=== PATIENT | female | born 1965 | race Caucasian/White ===

== ENCOUNTER 2018-02-06 19:20 | Emergency (ER) | payer SELFPAY ==
--- NOTE | 2018-02-06 19:51 | ER ---
Nurse's Notes [facility] Name: Belem Weldon Age: 52 yrs Sex: Female : 1965 Arrival Date: 02/06/2018 Time: 19:23 Bed 24 Private MD: Diagnosis: Pain in left shoulder Presentation: 02/06 19:25 Presenting complaint: Patient states: Pain R/T left rotator cuff tear 3 months ago. aj Transition of care: patient was not received from another setting of care. Onset of symptoms was October 2017. Risk Assessment: Do you want to hurt yourself or someone else? Patient reports no desire to harm self or others. Initial Sepsis Screen: Does the patient meet any 2 criteria? No. Patient's initial sepsis screen is negative. Does the patient have a suspected source of infection? No. Patient's initial sepsis screen is negative. Care prior to arrival: None. 19:25 Method Of Arrival: Ambulatory aj 19:25 Acuity: NAT 5 aj Triage Assessment: 19:27 General: Appears in no apparent distress. comfortable, Behavior is calm, cooperative, aj appropriate for age. Pain: Complains of pain in anterior aspect of left shoulder. Neuro: Level of Consciousness is awake, alert, obeys commands, Oriented to person, place, time, situation, Appropriate for age. Respiratory: Airway is patent Respiratory effort is even, unlabored, Respiratory pattern is regular, symmetrical. Derm: Skin is intact, is healthy with good turgor, Skin is pink, warm \T\ dry. normal. Musculoskeletal: Reports pain in anterior aspect of left shoulder. 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 - Social history:: Smoking status: Patient uses tobacco products, smokes one-half pack cigarettes per day. - Ebola Screening: : Patient negative for fever greater than or equal to 101.5 degrees Fahrenheit, and additional compatible Ebola Virus Disease symptoms Patient denies exposure to infectious person Patient denies travel to an Ebola-affected area in the 21 days before illness onset No symptoms or risks identified at this time. Screenin:34 Abuse screen: Denies threats or abuse. Denies injuries from another. Nutritional mg2 screening: No deficits noted. Tuberculosis screening: No symptoms or risk factors identified. Fall Risk None identified. Assessment: 19:41 General: Appears in no apparent distress. uncomfortable, Behavior is calm, cooperative. mg2 Pain: Complains of pain in left arm and anterior aspect of left shoulder Pain does not radiate. Pain currently is 6 out of 10 on a pain scale. Quality of pain is described as aching, Pain began gradually, 1 day ago. Is intermittent, Alleviated by rest, Aggravated by increased activity, repositioning, weight bearing. Neuro: Level of Consciousness is awake, alert, obeys commands, Oriented to person, place, time, situation. Cardiovascular: Capillary refill < 3 seconds Patient's skin is warm and dry. Respiratory: Airway is patent Respiratory effort is even, unlabored, Respiratory pattern is regular, symmetrical. GI: No signs and/or symptoms were reported involving the gastrointestinal system. : No signs and/or symptoms were reported regarding the genitourinary system. EENT: No signs and/or symptoms were reported regarding the EENT system. Derm: Skin is intact, Skin is pink, warm \T\ dry. normal. Musculoskeletal: Circulation, motion, and sensation intact. tenderness on the left upper arm. Vital Signs: 19:27 BP 148 / 91; Pulse 81; Resp 18; Temp 97.1; Pulse Ox 97% on R/A; Weight 82.1 kg; Height aj 5 ft. 7 in. (170.18 cm); 19:27 Body Mass Index 28.35 (82.10 kg, 170.18 cm) aj ED Course: 19:23 Patient arrived in ED. al2 19:26 Triage completed. aj 19:27 Arm band placed on left wrist. Patient placed in an exam room. aj 19:42 Pino Junior PA is PHCP. jr8 19:42 Herbert Santamaria MD is Attending Physician. jr8 19:43 Patient has correct armband on for positive identification. Bed in low position. Call mg2 light in reach. Side rails up X 1. Door closed. Warm blanket given. Head of bed. 19:43 No provider procedures requiring assistance completed. mg2 19:59 Patient did not have IV access during this emergency room visit. mg2 Administered Medications: 19:58 Drug: [place] (7.5 mg-325 mg) 1 tabs Route: PO; mg2 19:59 Follow up: Response: No adverse reaction; Medication administered at discharge. mg2 Outcome: 19:51 Discharge ordered by MD. cooper 19:59 Discharged to home ambulatory. mg2 19:59 Condition: good 19:59 Discharge instructions given to patient, Instructed on discharge instructions, follow up and referral plans. Demonstrated understanding of instructions, follow-up care, Prescriptions given X 1. 20:01 Patient left the ED. mg2 Signatures: Emeli Frazier, RN RN Pino Butt PA PA jr8 Love, Angelica al2 Gardose, Michele, RN RN mg2
--- NOTE | 2018-02-06 19:51 | EDPHYS ---
Physician Documentation [facility] Name: Belem Weldon Age: 52 yrs Sex: Female : 1965 Arrival Date: 02/06/2018 Time: 19:23 Bed 24 Private MD: ED Physician Herbert Santamaria HPI: 02/06 19:48 This 52 yrs old Female presents to ER via Ambulatory with complaints of jr8 Shoulder Pain. 19:48 left shoulder. Onset: The symptoms/episode began/occurred 3 month(s) ago. Modifying jr8 factors: the symptoms are alleviated by nothing. The symptoms are aggravated by lifting weight, movement, rotation of arm. Severity of symptoms: At their worst the symptoms were moderate, in the emergency department the symptoms are unchanged. The patient has experienced similar episodes in the past, a few times. The patient has not recently seen a physician. Chronic left shoulder pain. Stated that she aggravated it the other day and now cannot stand the pain . 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 - Social history:: Smoking status: Patient uses tobacco products, smokes one-half pack cigarettes per day. - Ebola Screening: : Patient negative for fever greater than or equal to 101.5 degrees Fahrenheit, and additional compatible Ebola Virus Disease symptoms Patient denies exposure to infectious person Patient denies travel to an Ebola-affected area in the 21 days before illness onset No symptoms or risks identified at this time. ROS: 19:48 Eyes: Negative for injury, pain, redness, and discharge, ENT: Negative for injury, jr8 pain, and discharge, Neck: Negative for injury, pain, and swelling, Cardiovascular: Negative for chest pain, palpitations, and edema, Respiratory: Negative for shortness of breath, cough, wheezing, and pleuritic chest pain, Abdomen/GI: Negative for abdominal pain, nausea, vomiting, diarrhea, and constipation, Back: Negative for injury and pain, Skin: Negative for injury, rash, and discoloration, Neuro: Negative for headache, weakness, numbness, tingling, and seizure. 19:48 MS/extremity: Positive for decreased range of motion, pain, tenderness, of the left shoulder. Exam: 19:48 Eyes: Pupils equal round and reactive to light, extra-ocular motions intact. Lids and jr8 lashes normal. Conjunctiva and sclera are non-icteric and not injected. Cornea within normal limits. Periorbital areas with no swelling, redness, or edema. ENT: Nares patent. No nasal discharge, no septal abnormalities noted. Tympanic membranes are normal and external auditory canals are clear. Oropharynx with no redness, swelling, or masses, exudates, or evidence of obstruction, uvula midline. Mucous membranes moist. Neck: Trachea midline, no thyromegaly or masses palpated, and no cervical lymphadenopathy. Supple, full range of motion without nuchal rigidity, or vertebral point tenderness. No Meningismus. Cardiovascular: Regular rate and rhythm with a normal S1 and S2. No gallops, murmurs, or rubs. Normal PMI, no JVD. No pulse deficits. Respiratory: Lungs have equal breath sounds bilaterally, clear to auscultation and percussion. No rales, rhonchi or wheezes noted. No increased work of breathing, no retractions or nasal flaring. Abdomen/GI: Soft, non-tender, with normal bowel sounds. No distension or tympany. No guarding or rebound. No evidence of tenderness throughout. Back: No spinal tenderness. No costovertebral tenderness. Full range of motion. Skin: Warm, dry with normal turgor. Normal color with no rashes, no lesions, and no evidence of cellulitis. Neuro: Awake and alert, GCS 15, oriented to person, place, time, and situation. Cranial nerves II-XII grossly intact. Motor strength 5/5 in all extremities. Sensory grossly intact. Cerebellar exam normal. Normal gait. 19:48 Musculoskeletal/extremity: Extremities: grossly normal except: noted in the left shoulder: decreased ROM, pain, tenderness, Circulation is intact in all extremities. Sensation intact. decreased ROM with abduction and flexion of shoulder . Vital Signs: 19:27 BP 148 / 91; Pulse 81; Resp 18; Temp 97.1; Pulse Ox 97% on R/A; Weight 82.1 kg; Height aj 5 ft. 7 in. (170.18 cm); 19:27 Body Mass Index 28.35 (82.10 kg, 170.18 cm) MDM: 19:42 Patient medically screened. jr8 19:48 Data reviewed: vital signs, nurses notes, and as a result, I will discharge patient. jr8 Data interpreted: Pulse oximetry: on room air is 97 %. Interpretation: normal. Counseling: I had a detailed discussion with the patient and/or guardian regarding: the historical points, exam findings, and any diagnostic results supporting the discharge/admit diagnosis, the need for outpatient follow up, a orthopedic surgeon, to return to the emergency department if symptoms worsen or persist or if there are any questions or concerns that arise at home. Administered Medications: 19:58 Drug: [place] (7.5 mg-325 mg) 1 tabs Route: PO; mg2 19:59 Follow up: Response: No adverse reaction; Medication administered at discharge. mg2 Disposition: 21:36 Co-signature as Attending Physician, Herbert Santamaria MD. pkrome Disposition: 02/06/18 19:51 Discharged to Home. Impression: Pain in left shoulder. - Condition is Stable. - Discharge Instructions: Shoulder Pain. - Prescriptions for Tylenol- Codeine #3 300-30 mg Oral Tablet - take 2 tablets by ORAL route every 6 hours As needed; 12 tablet. - Medication Reconciliation Form, Thank You Letter, Antibiotic Education, Prescription Opioid Use form. - Follow up: Private Physician; When: 2 - 3 days; Reason: Recheck today's complaints, Continuance of care, Re-evaluation by your physician. - Problem is new. - Symptoms have improved. Signatures: Emeli Frazier RN Herbert Bell MD MD pkl Pino Junior PA PA jr8 Rob Tobar RN RN mg2 Corrections: (The following items were deleted from the chart) 20:01 19:51 02/06/2018 19:51 Discharged to Home. Impression: Pain in left shoulder. Condition mg2 is Stable. Forms are Medication Reconciliation Form, Thank You Letter, Antibiotic Education, Prescription Opioid Use. Follow up: Private Physician; When: 2 - 3 days; Reason: Recheck today's complaints, Continuance of care, Re-evaluation by your physician. Problem is new. Symptoms have improved. jr8
[2018-02-06] MEDS ORDERED: HYDROCODONE/APAP 7.5/325 MG TAB ONE (19:56)
== END 2018-02-06 20:01 | disposition home or self-care (01) ==
LOC: ER 19:20
DX: M25.512 Pain in left shoulder (principal); Z88.5 Allergy status to narcotic agent; Z88.8 Allergy status to other drugs, medicaments and biological substances; F17.210 Nicotine dependence, cigarettes, uncomplicated
CPT/HCPCS: 99283

== ENCOUNTER 2018-03-23 21:25 | Emergency (ER) | payer SELFPAY ==
[2018-03-23] MEDS ORDERED: MORPHINE 4 MG/ML SYR ONE (22:50)
[2018-03-23] MEDS ORDERED: NA CHLORIDE 0.9% 500 ML ONE (22:50)
[2018-03-23] MEDS ORDERED: ONDANSETRON 4 MG/2 ML VIAL ONE (22:50)
[2018-03-23 22:54] LABS: Absolute Lymphocytes (CBC) 2.8 K/uL (0.7-4.9); Absolute Monocytes 0.8 K/uL (0.1-1.3); Absolute Neutrophil 5.2 K/uL (1.8-8.0); Eosinophils % 7.8 % (0-4.4); Hematocrit 36.6 % (36.0-45.0); Lymphocytes % 29.3 % (15.3-44.8); MCH 32.2 pg (27.0-35.0); MCV 93.4 fL (80-100); MPV 9.8 fL (7.6-11.3); Monocytes % 8.1 % (3.3-12.3); RBC Red Blood Cell Count 3.92 M/uL (3.86-4.86)
[2018-03-23 23:07] LABS: ALT/SGPT 14 U/L (12-78); AST/SGOT 14 U/L (15-37); Albumin 3.4 g/dL (3.4-5.0); Alkaline Phosphatase 75 U/L (45-117); BUN Blood Urea Nitrogen 11 mg/dL (7-18); Bicarbonate 28 mmol/L (21-32); Bilirubin Direct < 0.1 mg/dL (0-0.2); Bilirubin Total 0.1 mg/dL (0.2-1.0); Glucose Level 99 mg/dL (74-106); Lipase 101 U/L (73-393); Potassium 3.7 mmol/L (3.5-5.1); Protein, Total 6.7 g/dL (6.4-8.2); Sodium Level 145 mmol/L (136-145)
[2018-03-24] MEDS ORDERED: FENTANYL CITR 100 MCG/2 ML ONE (00:48)
--- NOTE | 2018-03-24 01:00 | ER ---
Nurse's Notes [facility] Name: Belem Weldon Age: 53 yrs Sex: Female : 1965 Arrival Date: 03/23/2018 Time: 21:25 Bed 8 Private MD: Diagnosis: Acute abdominal pain s/p appendectomy Presentation: 03/23 21:33 Presenting complaint: Patient states: She had a appendectomy 3 days ago in [place]. aj1 Patient states that her pain hasn't gotten any better since she had surgery so she came to the ER. Reports RLQ abdominal pain. Reports nausea. Denies V/D. Denies fever. Transition of care: patient was not received from another setting of care. Onset of symptoms was March 21, 2018. Risk Assessment: Do you want to hurt yourself or someone else? Patient reports no desire to harm self or others. Initial Sepsis Screen: Does the patient meet any 2 criteria? No. Patient's initial sepsis screen is negative. Does the patient have a suspected source of infection? Yes: Acute abdominal pain. Care prior to arrival: None. 21:33 Method Of Arrival: Ambulatory aj 21:33 Acuity: NAT 3 aj1 Triage Assessment: 21:35 General: Appears in no apparent distress. uncomfortable, Behavior is calm, cooperative, aj1 appropriate for age. Pain: Complains of pain in right lower quadrant Pain currently is 9 out of 10 on a pain scale. Neuro: Level of Consciousness is awake, alert, obeys commands. Cardiovascular: Patient's skin is warm and dry. Respiratory: Airway is patent Respiratory effort is even, unlabored, Respiratory pattern is regular, symmetrical. GI: Reports lower abdominal pain, nausea, Patient currently denies diarrhea, vomiting. 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 - Social history:: Smoking status: Patient uses tobacco products, smokes one-half pack cigarettes per day. - Ebola Screening: : Patient denies travel to an Ebola-affected area in the 21 days before illness onset. - Family history:: not pertinent. - Hospitalizations: : s/p appendectomy in a hospital in [place]. Screenin:39 Abuse screen: Denies threats or abuse. Denies injuries from another. Nutritional lp1 screening: No deficits noted. Tuberculosis screening: No symptoms or risk factors identified. Fall Risk None identified. Assessment: 22:36 General: Appears uncomfortable, Behavior is appropriate for age. Pain: Complains of lp1 pain in umbilical area Pain currently is 8 out of 10 on a pain scale. Quality of pain is described as sharp, Pain began gradually. Neuro: Level of Consciousness is awake, alert, obeys commands, Oriented to person, place, time, situation. Cardiovascular: Patient's skin is warm and dry. Respiratory: Respiratory effort is even, unlabored, Breath sounds are clear bilaterally. GI: Abdomen is non-distended, Abdomen is tender to palpation in umbilical area. : No signs and/or symptoms were reported regarding the genitourinary system. Derm: Post surgical sites x3 to abdomen post appendectomy; sites clean and dry; hot, tender to touch to right of umbilicus. Musculoskeletal: Circulation, motion, and sensation intact. 22:48 Reassessment: Ultrasound at bedside. lp1 03/24 00:00 Reassessment: Patient appears in no apparent distress at this time. Patient and/or lp1 family updated on plan of care and expected duration. Pain level reassessed. Patient is alert, oriented x 3, equal unlabored respirations, skin warm/dry/pink. Patient states no pain relief from medication. 01:14 Reassessment: Patient appears in no apparent distress at this time. Patient and/or lp1 family updated on plan of care and expected duration. Pain level reassessed. Patient states feeling better. Vital Signs: 03/23 21:35 BP 139 / 69; Pulse 88; Resp 18; Temp 99.5(O); Pulse Ox 97% on R/A; Weight 87.09 kg (R); aj1 Height 5 ft. 7 in. (170.18 cm) (R); Pain 9/10; 22:45 BP 124 / 72; Pulse 83; Resp 16; Pulse Ox 98% on R/A; lp1 03/24 00:14 BP 133 / 68; Pulse 76; Resp 16; Pulse Ox 98% on R/A; lp1 03/23 21:35 Body Mass Index 30.07 (87.09 kg, 170.18 cm) aj1 ED Course: 03/23 21:25 Patient arrived in ED. ds1 21:35 Triage completed. aj1 21:35 Arm band placed on Patient placed in waiting room, Patient notified of wait time. aj1 22:08 Regis Larry MD is Attending Physician. wa 22:17 Hiral Shrestha RN is Primary Nurse. lp1 22:35 Inserted saline lock: 20 gauge in left antecubital area, using aseptic technique. Blood lp1 collected. 22:40 Patient has correct armband on for positive identification. Bed in low position. Call lp1 light in reach. Pulse ox on. NIBP on. 23:00 Extrem Venous W Compression Deepak US In Process Unspecified. EDMS 23:00 Radiology exam delayed due to lab results not completed at this time. (BUN/Creatinine). nj 23:30 CT Abd/Pelvis - W/Contrast In Process Unspecified. EDMS 10 00:59 Sonido Henderson MD is Referral Physician. wa 01:13 No provider procedures requiring assistance completed. IV discontinued, No lp1 redness/swelling at site. Pressure dressing applied. Administered Medications: 03/23 23:08 Drug: NS 0.9% 500 ml Route: IV; Rate: bolus; Site: left antecubital; lp1 03/24 00:52 Follow up: IV Status: Completed infusion; IV Intake: 500ml lp1 03/23 23:08 Drug: Zofran 2 mg Route: IVP; Site: left antecubital; lp1 03/24 00:00 Follow up: Response: No adverse reaction lp1 03/23 23:09 Drug: morphine 5 mg Route: IVP; Site: left antecubital; lp1 03/24 00:00 Follow up: Response: Pain is unchanged, physician notified lp1 00:45 Drug: fentaNYL (PF) 75 mcg Route: IVP; Site: left antecubital; lp1 01:14 Follow up: Response: Pain is decreased lp1 Intake: 00:52 IV: 500ml; Total: 500ml. lp1 Outcome: 00:59 Discharge ordered by . wa 01:13 Discharged to home ambulatory, with significant other. lp1 01:13 Condition: good 01:13 Discharge instructions given to patient, Instructed on discharge instructions, follow up and referral plans. medication usage, Demonstrated understanding of instructions, follow-up care, medications, Prescriptions given X 2. 01:14 Patient left the ED. lp1 Signatures: Dispatcher [employer] EDAlisa Farrell RN RN aj1 Amy Junior Laura, RN RN lp1 Ian Gates William, MD MD wa
--- NOTE | 2018-03-24 01:00 | EDPHYS ---
Physician Documentation [facility] Name: Belem Weldon Age: 53 yrs Sex: Female : 1965 Arrival Date: 03/23/2018 Time: 21:25 Bed 8 Private MD: ED Physician Regis Larry HPI: 03/24 00:49 This 53 yrs old Female presents to ER via Ambulatory with complaints of Post wa Surgical Pain. 00:49 The patient presents with abdominal pain. 00:50 Onset: The symptoms/episode began/occurred 5 day(s) ago, states s/p appendectomy 5 days wa ago. released 3 days ago. c/o RLQ abd pain. worsening. The symptoms do not radiate. Associated signs and symptoms: none. The symptoms are described as achy. Modifying factors: The symptoms are alleviated by nothing, the symptoms are aggravated by nothing. Severity of pain: At its worst the pain was moderate in the emergency department the pain is unchanged. The patient has not experienced similar symptoms in the past. The patient has been recently seen by a physician: as noted above. 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 - Social history:: Smoking status: Patient uses tobacco products, smokes one-half pack cigarettes per day. - Ebola Screening: : Patient denies travel to an Ebola-affected area in the 21 days before illness onset. - Family history:: not pertinent. - Hospitalizations: : s/p appendectomy in a hospital in [place]. ROS: 03/24 00:52 Constitutional: Negative for fever, chills, and weight loss, Eyes: Negative for injury, wa pain, redness, and discharge, ENT: Negative for injury, pain, and discharge, Neck: Negative for injury, pain, and swelling, Cardiovascular: Negative for chest pain, palpitations, and edema, Respiratory: Negative for shortness of breath, cough, wheezing, and pleuritic chest pain, Back: Negative for injury and pain, : Negative for injury, bleeding, discharge, and swelling, MS/Extremity: Negative for injury and deformity, Skin: Negative for injury, rash, and discoloration, Neuro: Negative for headache, weakness, numbness, tingling, and seizure, Psych: Negative for depression, anxiety, suicide ideation, homicidal ideation, and hallucinations. Abdomen/GI: Positive for abdominal pain, Negative for nausea and vomiting, diarrhea. All other systems are negative. Exam: 00:53 Constitutional: This is a well developed, well nourished patient who is awake, alert, wa and in no acute distress. Head/Face: Normocephalic, atraumatic. Eyes: Pupils equal round and reactive to light, extra-ocular motions intact. Lids and lashes normal. Conjunctiva and sclera are non-icteric and not injected. Cornea within normal limits. Periorbital areas with no swelling, redness, or edema. ENT: Nares patent. No nasal discharge, no septal abnormalities noted. Tympanic membranes are normal and external auditory canals are clear. Oropharynx with no redness, swelling, or masses, exudates, or evidence of obstruction, uvula midline. Mucous membranes moist. Neck: Trachea midline, no thyromegaly or masses palpated, and no cervical lymphadenopathy. Supple, full range of motion without nuchal rigidity, or vertebral point tenderness. No Meningismus. Chest/axilla: Normal chest wall appearance and motion. Nontender with no deformity. No lesions are appreciated. Cardiovascular: Regular rate and rhythm with a normal S1 and S2. No gallops, murmurs, or rubs. Normal PMI, no JVD. No pulse deficits. Respiratory: Lungs have equal breath sounds bilaterally, clear to auscultation and percussion. No rales, rhonchi or wheezes noted. No increased work of breathing, no retractions or nasal flaring. Back: No spinal tenderness. No costovertebral tenderness. Full range of motion. Skin: Warm, dry with normal turgor. Normal color with no rashes, no lesions, and no evidence of cellulitis. MS/ Extremity: Pulses equal, no cyanosis. Neurovascular intact. Full, normal range of motion. Neuro: Awake and alert, GCS 15, oriented to person, place, time, and situation. Cranial nerves II-XII grossly intact. Motor strength 5/5 in all extremities. Sensory grossly intact. Cerebellar exam normal. Normal gait. Psych: Awake, alert, with orientation to person, place and time. Behavior, mood, and affect are within normal limits. Vital Signs: 03/23 21:35 BP 139 / 69; Pulse 88; Resp 18; Temp 99.5(O); Pulse Ox 97% on R/A; Weight 87.09 kg (R); aj1 Height 5 ft. 7 in. (170.18 cm) (R); Pain 9/10; 22:45 BP 124 / 72; Pulse 83; Resp 16; Pulse Ox 98% on R/A; lp1 03/24 00:14 BP 133 / 68; Pulse 76; Resp 16; Pulse Ox 98% on R/A; lp1 03/23 21:35 Body Mass Index 30.07 (87.09 kg, 170.18 cm) aj1 MDM: 03/23 22:08 Patient medically screened. mo 03/24 00:53 Differential diagnosis: abd pain. s/p appendectomy. r/o abscess. Data reviewed: vital mo signs, nurses notes, lab test result(s). Test interpretation: by ED physician or midlevel provider: labs noted wnl. CT abd/pelvis: post-op changes. no acute process. 00:57 ED course: improved. no intra- abd abscess. pain control. gen surg f/u as pt is not mo going back to [place]. 03/23 22:30 Order name: Basic Metabolic Panel; Complete Time: 00:49 mo 03/23 22:30 Order name: CBC with Diff; Complete Time: 00:50 mo 03/23 22:30 Order name: Hepatic Function; Complete Time: 00:50 mo 03/23 22:30 Order name: Lipase; Complete Time: 00:50 mo 03/23 22:30 Order name: Urine Microscopic Only mo 03/24 00:55 Order name: Urine Dipstick--Ancillary (enter results) [facility] 03/23 22:28 Order name: Extrem Venous W Compression Deepak US mo 03/23 22:30 Order name: IV Saline Lock; Complete Time: 22:41 mo 03/23 22:30 Order name: CT Abd/Pelvis - W/Contrast mo 03/24 01:03 Order name: Urine Culture EDUT 03/23 22:30 Order name: Labs collected and sent; Complete Time: 22:41 mo 03/23 22:30 Order name: Urine Dipstick-Ancillary (obtain specimen); Complete Time: 00:54 mo Administered Medications: 03/23 23:08 Drug: NS 0.9% 500 ml Route: IV; Rate: bolus; Site: left antecubital; lp1 03/24 00:52 Follow up: IV Status: Completed infusion; IV Intake: 500ml lp1 03/23 23:08 Drug: Zofran 2 mg Route: IVP; Site: left antecubital; lp1 03/24 00:00 Follow up: Response: No adverse reaction lp1 03/23 23:09 Drug: morphine 5 mg Route: IVP; Site: left antecubital; 1 03/24 00:00 Follow up: Response: Pain is unchanged, physician notified lp1 00:45 Drug: fentaNYL (PF) 75 mcg Route: IVP; Site: left antecubital; 1 01:14 Follow up: Response: Pain is decreased [facility] Disposition: 03/24/18 00:59 Discharged to Home. Impression: Acute abdominal pain s/p appendectomy. - Condition is Stable. - Discharge Instructions: Abdominal Pain, Adult, [id number]. - Prescriptions for Zofran 4 mg Oral Tablet - take 1 tablet by ORAL route every 12 hours As needed; 20 tablet. - Medication Reconciliation Form, Thank You Letter, Antibiotic Education, Prescription Opioid Use form. - Follow up: Sonido Henderson MD; When: 1 - 2 days; Reason: Recheck today's complaints. - Problem is new. - Symptoms have improved. Signatures: Dispatcher [employer] EDMS Alisa Rodriguez RN RN aj1 Hiral Shrestha RN RN lp1 Regis Larry MD MD wa Corrections: (The following items were deleted from the chart) 01:14 00:59 03/24/2018 00:59 Discharged to Home. Impression: Acute abdominal pain s/p lp1 appendectomy. Condition is Stable. Forms are Medication Reconciliation Form, Thank You Letter, Antibiotic Education, Prescription Opioid Use. Follow up: Sonido Henderson; When: 1 - 2 days; Reason: Recheck today's complaints. Problem is new. Symptoms have improved. wa
[2018-03-24 01:02] LABS: Urine Amorphous Sediment TRACE /HPF (NONE SEEN); Urine Bacteria 20-50 /HPF (<20); Urine Culture Reflex Order REFLEXED; Urine RBC NONE SEEN /HPF (NONE SEEN)
[2018-03-24 01:26] LABS: Urine Blood NEGATIVE (NEG); Urine Glucose NEGATIVE (NEG); Urine Protein NEGATIVE (NEG); Urine Specific Gravity 1.015 (1.005-1.030); Urine pH 6.5 (5.0-7.0)
--- NOTE | 2018-03-24 08:23 | RAD REPORT ---
EXAM DESCRIPTION: US - Extrem Venous W Compress Deepak - 03/24/2018 7:58 am CLINICAL HISTORY: Bilateral leg pain and swelling COMPARISON: None. TECHNIQUE: Real-time sonographic evaluation of the bilateral lower extremity common femoral, superfi cial femoral, popliteal and posterior tibial veins was performed. FINDINGS: Normal compressibility, flow augmentation, phasic flow and spontaneous flow are identified in the left and right lower extremity common femoral, superficial femoral, popliteal and posterior t ibial veins. No intraluminal filling defects seen. A 3.8 x 2.3 x 0.8 right popliteal fossa cyst is present. No rupture or hemorrhage findings. IMPRESSION: No DVT in either lower extremity. Moderate-size popliteal fossa cyst on the right. No cyst rupture or hemorrhage seen.
--- NOTE | 2018-03-24 08:35 | RAD REPORT ---
EXAM DESCRIPTION: CT - Abdomen Pelvis W Contrast - 03/24/2018 4:22 am CLINICAL HISTORY: Abdominal pain progressive since appendectomy 3 days earlier A preliminary report was provided at the time of the study and reviewed prior to final report. COMPARISON: None. TECHNIQUE: Biphasic, helical CT imaging of the abdomen and pelvis was performed following 100 ml non -ionic IV contrast. No oral contrast was given. All CT scans are performed using dose optimization technique as appropriate and may include automated exposure control or mA/KV adjustment according to patient size. FINDINGS: No suspicious findings in the lung bases. The liver, spleen, and pancreas show no suspicious findings. Gallbladder and biliary tree are also wi thout suspicious finding. Symmetric renal function is seen with no hydronephrosis or suspicious renal mass. No pyelonephritis o r acute renal parenchymal process. No adrenal abnormality. Partially filled urinary bladder shows no suspicious findings. No gastric dilatation or wall thickening. No dilated small bowel loops. Appendectomy clips are presen t. Little if any identifiable postoperative stranding seen. There is no abscess or extravasation. No right lower quadrant abnormality to explain patient's symptoms. There is moderate stool volume in the nondilated colon. Nonspecific enteritis or small bowel ileus would be possible. No free air, free fl uid or inflammatory stranding. No hernia, mass or bulky lymphadenopathy. No acute bone findings seen. Approximately 40% wedge compression of T11 is present presumed to be old given the absence of any acute symptoms. Hemangioma changes are present in the L1 body. Patient has advanced disc and bony degenerative change at L5-S1. IMPRESSION: No abnormality or complications related to the appendectomy. Moderate stool volume is pr esent in the colon. Small bowel enteritis or mild ileus could still be present. No pyelonephritis or acute finding.
== END 2018-03-24 01:14 | disposition home or self-care (01) ==
LOC: ER 21:25
DX: R10.31 Right lower quadrant pain (principal); E03.9 Hypothyroidism, unspecified; F17.210 Nicotine dependence, cigarettes, uncomplicated; Z88.5 Allergy status to narcotic agent; Z88.6 Allergy status to analgesic agent; Z88.8 Allergy status to other drugs, medicaments and biological substances; Z98.890 Other specified postprocedural states
CPT/HCPCS: 36415; 74177; 80048; 80076; 81003; 81015; 83690; 85025; 87086; 87088; 93970; 96361; 96374; 96375; 99284; J2405; J3010; Q9967

== ENCOUNTER 2018-04-01 11:58 | Emergency (ER) | payer SELFPAY ==
[2018-04-01] MEDS ORDERED: ACETAMINOPHEN 500 MG TAB ONE ×2 (12:20→16:00)
[2018-04-01] MEDS ORDERED: NA CHLORIDE 0.9% 1,000 ML ONE ×2 (12:20→16:01)
[2018-04-01] MEDS ORDERED: ONDANSETRON 4 MG/2 ML VIAL ONE (12:20)
[2018-04-01] MEDS ORDERED: MORPHINE 4 MG/ML SYR ONE (12:32)
[2018-04-01 12:40] LABS: Absolute Monocytes 0.7 K/uL (0.1-1.3); Absolute Neutrophil 22.9 K/uL (1.8-8.0); Basophils % 0.1 % (0-1.3); Eosinophils % 1.5 % (0-4.4); Hematocrit 39.7 % (36.0-45.0); Lymphocytes % 3.9 % (15.3-44.8); MCH 31.5 pg (27.0-35.0); MCV 92.4 fL (80-100); MPV 9.3 fL (7.6-11.3); Monocytes % 2.9 % (3.3-12.3)
[2018-04-01 13:23] LABS: ALT/SGPT 20 U/L (12-78); AST/SGOT 17 U/L (15-37); Albumin 3.9 g/dL (3.4-5.0); Alkaline Phosphatase 93 U/L (45-117); BUN Blood Urea Nitrogen 16 mg/dL (7-18); Bicarbonate 26 mmol/L (21-32); Bilirubin Direct < 0.1 mg/dL (0-0.2); Bilirubin Total 0.3 mg/dL (0.2-1.0); Glucose Level 119 mg/dL (74-106); Lipase 113 U/L (73-393); Potassium 4.1 mmol/L (3.5-5.1); Protein, Total 7.6 g/dL (6.4-8.2); Sodium Level 139 mmol/L (136-145)
[2018-04-01] MEDS ORDERED: ALBUTEROL 2.5 MG/3 ML NEB SOL ONE (13:24)
[2018-04-01] MEDS ORDERED: IPRATROPIUM BROM 0.5MG/2.5ML ONE (13:24)
[2018-04-01] MEDS ORDERED: CEFTRIAXONE/SWI 1gm 1 GM/10 ML SYR ONE (13:24)
[2018-04-01 13:29] LABS: Blood Morphology Comment NOTED (NOT SEEN); Platelet Estimate ADEQ; Stomatocytes 1+
--- NOTE | 2018-04-01 13:31 | RAD REPORT ---
EXAM DESCRIPTION: Samuel Single View04/01/2018 1:14 pm CLINICAL HISTORY: cough COMPARISON: none FINDINGS: The lungs appear clear of acute infiltrate. The heart is normal size IMPRESSION: No acute abnormalities displayed
[2018-04-01 14:45] LABS: Urine Bacteria 20-50 /HPF (<20); Urine Culture Reflex Order NOT NEEDED; Urine RBC <5 /HPF (NONE SEEN)
--- NOTE | 2018-04-01 15:57 | RAD REPORT ---
EXAM DESCRIPTION: CT - Abdomen Pelvis W Contrast - 04/01/2018 3:40 pm CLINICAL HISTORY: Fever, abdominal pain, body aches, appendectomy 2 weeks earlier COMPARISON: CT study of March 23 TECHNIQUE: Biphasic, helical CT imaging of the abdomen and pelvis was performed following 100 ml non -ionic IV contrast. Oral contrast was given. All CT scans are performed using dose optimization technique as appropriate and may include automated exposure control or mA/KV adjustment according to patient size. FINDINGS: Scarring changes are present in both lung bases. No pericardial thickening or effusion. The liver, spleen, and pancreas show no suspicious findings. Liver is borderline fatty infiltrated. N o gallbladder or biliary tree acute finding. Gallstones can be occult. Symmetric renal function is seen with no hydronephrosis or suspicious renal mass. No pyelonephritis o r acute renal parenchymal process. Urinary bladder shows no suspicious finding. Uterus is absent. Ova vernon are absent or atrophic. No suspicious adnexal mass. No gastric dilatation gastric wall thickening. A minimal hiatal hernia is present. No dilated small b owel loops. There is moderate stool volume throughout the colon. Appendectomy clips are present. No w all thickening at the appendectomy site. No abscess, inflammatory stranding or acute finding at this site. Trace amount of free fluid in the cul-de-sac is within physiologic limits the not regarded as s uspicious. No free air or pneumatosis. No mass or bulky lymphadenopathy. Postsurgical changes are present at th e umbilicus. No adrenal abnormality. No suspicious bony findings. IMPRESSION: Appendectomy changes are present but there is no abscess, free air, inflammatory strandi ng or other suspicious finding. The trace free fluid in the cul-de-sac is within physiologic limits and not regarded as significant. No acute finding is identifiable. No suspicious change from comparison imaging.
--- NOTE | 2018-04-01 16:05 | ER ---
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 Transition of care: patient was not received from another setting of care. Onset of symptoms was April 01, 2018. Risk Assessment: Do you want to hurt yourself or someone else? Patient reports no desire to harm self or others. Initial Sepsis Screen: Does the patient meet any 2 criteria? No. Patient's initial sepsis screen is negative. Does the patient have a suspected source of infection? No. Patient's initial sepsis screen is negative. Care prior to arrival: Medication(s) given: zofran 4 mg, IV initiated. 20 GA, in the left antecubital area, Glucose check: 113. 12:00 Method Of Arrival: EMS: [email or web address] 12:00 Acuity: NAT 3 hj Triage Assessment: 12:04 General: Appears in no apparent distress. uncomfortable, Behavior is cooperative, hj appropriate for age, crying. Pain: Complains of pain in body. EENT: No signs and/or symptoms were reported regarding the EENT system. Neuro: Level of Consciousness is awake, alert, obeys commands, Oriented to person, place, time, situation, Appropriate for age. Cardiovascular: Capillary refill < 3 seconds Patient's skin is warm and dry. Respiratory: Airway is patent Respiratory effort is even, unlabored, Respiratory pattern is regular, symmetrical. GI: Reports nausea, vomiting. : No signs and/or symptoms were reported regarding the genitourinary system. Derm: Musculoskeletal: No signs and/or symptoms reported regarding the musculoskeletal system. 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 - Social history:: Smoking status: Patient uses tobacco products, Patient/guardian denies using alcohol. - Ebola Screening: : Patient negative for fever greater than or equal to 101.5 degrees Fahrenheit, and additional compatible Ebola Virus Disease symptoms Patient denies exposure to infectious person Patient denies travel to an Ebola-affected area in the 21 days before illness onset. Screenin:05 Abuse screen: Denies threats or abuse. Denies injuries from another. Nutritional hj screening: No deficits noted. Tuberculosis screening: No symptoms or risk factors identified. Fall Risk None identified. Assessment: 12:07 Reassessment: see triage for assessment;. hj 13:00 Reassessment: Patient and/or family updated on plan of care and expected duration. Pain hj level reassessed. Patient is alert, oriented x 3, equal unlabored respirations, skin warm/dry/pink. Patient states feeling better. 13:56 Reassessment: complaints of headache; provider aware;. hj 14:42 Reassessment: Patient and/or family updated on plan of care and expected duration. Pain hj level reassessed. Patient is alert, oriented x 3, equal unlabored respirations, skin warm/dry/pink. awaiting urine taqueria results; called lab; states; it wont be that long to be resulted;. 15:04 Reassessment: Patient and/or family updated on plan of care and expected duration. Pain hj level reassessed. Patient is alert, oriented x 3, equal unlabored respirations, skin warm/dry/pink. provider in room for POC;. 15:18 Reassessment: provider ordered straight cath; pt refused; states "i can pee', i dont hj want that"; explained to pt, we want a sterile catch; pt still resufed;. 15:38 Reassessment: still complaining of pain; wheeled to CT:. hj 15:51 Reassessment: wheeled back from CT;. hj Vital Signs: 12:05 BP 131 / 62; Pulse 104; Resp 18; Temp 102.2(O); Pulse Ox 99% on R/A; Weight 88.45 kg; hj Height 5 ft. 7 in. (170.18 cm); 13:13 BP 132 / 58; Pulse 95; Resp 18; Temp 101.8(O); Pulse Ox 100% on R/A; hj 13:55 BP 121 / 44; Pulse 80; Resp 18; Pulse Ox 98% on R/A; hj 14:43 BP 110 / 41; Pulse 78; Resp 18; Pulse Ox 98% on R/A; hj 15:04 BP 114 / 57; Pulse 75; Resp 18; Pulse Ox 99% on R/A; hj 15:52 BP 153 / 82; Pulse 76; Resp 18; Pulse Ox 100% on R/A; hj 15:53 Temp 102.2(O); dh3 16:06 BP 138 / 75; Pulse 72; Resp 18; Temp 100.3(O); Pulse Ox 100% on R/A; hj 12:05 Body Mass Index 30.54 (88.45 kg, 170.18 cm) hj 16:06 post tylenol 1 gm hj ED Course: 11:59 Patient arrived in ED. hj 12:00 Roni uGzman NP is PHCP. pm1 12:00 Eugene Stein MD is Attending Physician. pm1 12:02 Triage completed. hj 12:06 Kwasi Lester, ALINE is Primary Nurse. hj 12:06 Arm band placed on right wrist. hj 12:06 Patient has correct armband on for positive identification. Placed in gown. Bed in low hj position. Call light in reach. Side rails up X 1. Adult w/ patient. 12:22 Initial lab(s) drawn, by me, sent to lab. Inserted saline lock: 22 gauge in right upper hj arm, using aseptic technique. Blood collected. 13:11 X-ray completed. Portable x-ray completed in exam room. 1 13:13 Chest Single View XRAY In Process Unspecified. EDMS 14:04 Urine collected: clean catch specimen, clear. dh3 15:31 CT Abd/Pelvis - W/Contrast: IV contrast only In Process Unspecified. EDMS 15:42 CT completed. Patient tolerated procedure well. Patient moved to CT via stretcher. sj 16:27 No provider procedures requiring assistance completed. IV discontinued, intact, hj bleeding controlled, No redness/swelling at site. Pressure dressing applied. Administered Medications: Discontinued: NS 0.9% 1000 ml IV at 125 ml/hr continuous 12:21 Drug: NS 0.9% 1000 ml Route: IV; Rate: 1000 ml; Site: right upper arm; hj 12:36 Follow up: IV Status: Completed infusion hj 12:21 Drug: Zofran 4 mg Route: IVP; Site: right upper arm; hj 12:35 Follow up: Response: No adverse reaction; Nausea is decreased hj 12:21 Drug: Tylenol 1000 mg Route: PO; hj 12:35 Follow up: Response: No adverse reaction; Pain is decreased hj 12:27 Drug: morphine 4 mg Route: IVP; Site: right upper arm; hj 12:36 Follow up: Response: No adverse reaction hj 12:59 Drug: Rocephin 1 grams Route: IV; Rate: calculated rate; Site: right upper arm; hj 16:28 Follow up: IV Status: Completed infusion hj 12:59 Drug: Albuterol - atroVENT (3:1) (2.5 mg - 0.5 mg) 3 ml Route: Nebulizer; hj 13:27 Follow up: Response: No adverse reaction; Wheezing diminished hj 16:28 Follow up: Response: No adverse reaction; Wheezing diminished hj 15:57 Drug: Tylenol 1000 mg Route: PO; hj 16:07 Follow up: Response: No adverse reaction; Temperature is decreased hj 16:08 Follow up: Response: No adverse reaction hj 15:57 Drug: NS 0.9% 1000 ml Route: IV; Rate: 125 ml/hr; Site: right upper arm; hj 16:30 Follow up: IV Status: Order to discontinue infusion; IV Intake: 350ml hj Intake: 16:30 IV: 350ml; Total: 350ml. Outcome: 16:04 Discharge ordered by . pm1 16:27 Discharged to home ambulatory, with family. hj 16:27 Condition: stable 16:27 Discharge instructions given to patient, family, Instructed on discharge instructions, follow up and referral plans. medication usage, Demonstrated understanding of instructions, follow-up care, medications, Prescriptions given X 3. 16:29 Patient left the ED. Signatures: Dispatcher [employer] EDMS Angela Judd 1 Albertina Lopez Henry, RN RN Roni Neal, COMMODITIES BROKER COMMODITIES BROKER pm1 eDna Lozano 3 Corrections: (The following items were deleted from the chart) 13:59 13:55 BP 179 / 85; Pulse 80bpm; Resp 18bpm; Pulse Ox 98% RA; scott chavez
--- NOTE | 2018-04-01 16:05 | EDPHYS ---
Physician Documentation [facility] Name: Belem Weldon Age: 53 yrs Sex: Female : 1965 Arrival Date: 04/01/2018 Time: 11:59 Bed 8 Private MD: ED Physician Eugene Stein HPI: 04/01 13:00 This 53 yrs old Female presents to ER via EMS with complaints of Fever, pm1 Nausea/Vomiting, Right Earache. 13:00 The patient reports fever, not measured (subjective). Onset: The symptoms/episode pm1 began/occurred today. Modifying factors: there are no obvious modifying factors. Associated signs and symptoms: Pertinent positives: nausea, vomiting, Body aches, Pertinent negatives: abdominal pain, backache, chest pain, diarrhea, headache, runny nose, skin rash, shortness of breath, sore throat. 13:00 The patient has been recently seen at the [facility] Emergency pm1 Department, last week, 03/24/2018 diagnosed with post surgical pain, s/p appendectomy. Patient had appendectomy 2 weeks ago. 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 - Social history:: Smoking status: Patient uses tobacco products, Patient/guardian denies using alcohol. - Ebola Screening: : Patient negative for fever greater than or equal to 101.5 degrees Fahrenheit, and additional compatible Ebola Virus Disease symptoms Patient denies exposure to infectious person Patient denies travel to an Ebola-affected area in the 21 days before illness onset. ROS: 13:00 Eyes: Negative for injury, pain, redness, and discharge, Neck: Negative for injury, pm1 pain, and swelling, Cardiovascular: Negative for chest pain, palpitations, and edema. 13:00 Back: Negative for injury and pain. 13:00 : Negative for injury, bleeding, discharge, and swelling, MS/Extremity: Negative for injury and deformity, Skin: Negative for injury, rash, and discoloration. 13:00 Neuro: Negative for headache, weakness, numbness, tingling, and seizure. 13:00 Constitutional: Positive for body aches, fever, Negative for poor PO intake. 13:00 ENT: Positive for ear pain, Negative for drainage from ear(s), rhinorrhea, sinus congestion, sinus pain, sore throat, difficulty swallowing, difficulty handling secretions, hoarseness. 13:00 Respiratory: Positive for cough, Negative for dyspnea on exertion, shortness of breath, sputum production, wheezing. 13:00 Abdomen/GI: Positive for nausea and vomiting, constipation, Negative for abdominal pain, diarrhea, abdominal distension, hematemesis. Exam: 13:00 Constitutional: This is a well developed, well nourished patient who is awake, alert, pm1 and in no acute distress. Head/Face: Normocephalic, atraumatic. Eyes: Pupils equal round and reactive to light, extra-ocular motions intact. Lids and lashes normal. Conjunctiva and sclera are non-icteric and not injected. Cornea within normal limits. Periorbital areas with no swelling, redness, or edema. 13:00 Neck: Trachea midline, no thyromegaly or masses palpated, and no cervical lymphadenopathy. Supple, full range of motion without nuchal rigidity, or vertebral point tenderness. No Meningismus. Chest/axilla: Normal chest wall appearance and motion. Nontender with no deformity. No lesions are appreciated. Cardiovascular: Regular rate and rhythm with a normal S1 and S2. No gallops, murmurs, or rubs. Normal PMI, no JVD. No pulse deficits. Respiratory: Lungs have equal breath sounds bilaterally, clear to auscultation and percussion. No rales, rhonchi or wheezes noted. No increased work of breathing, no retractions or nasal flaring. Back: No spinal tenderness. No costovertebral tenderness. Full range of motion. Skin: Warm, dry with normal turgor. Normal color with no rashes, no lesions, and no evidence of cellulitis. MS/ Extremity: Pulses equal, no cyanosis. Neurovascular intact. Full, normal range of motion. 13:00 ENT: External ear(s): are unremarkable, Ear canal(s): are normal, no bleeding, no bloody discharge, no cerumen impaction, no erythema, no foreign body, no purulent discharge, TM's: bulging, on the right, erythema, that is moderate, on the right, No mastoid tenderness, Examination of the other ear shows no obvious abnormality, Nose: is normal, no acute changes, Mouth: is normal, no drooling, (-) trismus no gum abnomalities, no lip abnormalities, no mucosal abnormalities, no tongue abnormalities, no acute changes, Posterior pharynx: is normal, no erythema, no exudate, no peritonsilar mass, no pooling of secretions, no swelling, no acute changes. 13:00 Abdomen/GI: Inspection: abdomen appears normal, obese Bowel sounds: normal, in all quadrants, Palpation: abdomen is soft and non-tender, in all quadrants, Hernia: noted in the umbilical area, incarceration, is not appreciated, tenderness, is not appreciated, soft and reducible, laproscopic scars well healing without any discharge, redness, swelling. No signs of infection. 13:00 Neuro: Orientation: is normal, Mentation: is normal, Cranial nerves: CN II- XII are normal as tested, Motor: moves all fours, strength is normal, strength is 5/5 in all extremities, Sensation: is normal, no obvious gross deficits, Gait: is steady, at a normal pace, without difficulty. Vital Signs: 12:05 BP 131 / 62; Pulse 104; Resp 18; Temp 102.2(O); Pulse Ox 99% on R/A; Weight 88.45 kg; hj Height 5 ft. 7 in. (170.18 cm); 13:13 BP 132 / 58; Pulse 95; Resp 18; Temp 101.8(O); Pulse Ox 100% on R/A; hj 13:55 BP 121 / 44; Pulse 80; Resp 18; Pulse Ox 98% on R/A; hj 14:43 BP 110 / 41; Pulse 78; Resp 18; Pulse Ox 98% on R/A; hj 15:04 BP 114 / 57; Pulse 75; Resp 18; Pulse Ox 99% on R/A; hj 15:52 BP 153 / 82; Pulse 76; Resp 18; Pulse Ox 100% on R/A; hj 15:53 Temp 102.2(O); 3 16:06 BP 138 / 75; Pulse 72; Resp 18; Temp 100.3(O); Pulse Ox 100% on R/A; hj 12:05 Body Mass Index 30.54 (88.45 kg, 170.18 cm) 16:06 post tylenol 1 gm MDM: 12:20 Patient medically screened. pm1 16:03 Data reviewed: vital signs. Data interpreted: Pulse oximetry: on room air is 100 %. pm1 Interpretation: normal. Counseling: I had a detailed discussion with the patient and/or guardian regarding: the historical points, exam findings, and any diagnostic results supporting the discharge/admit diagnosis, lab results, radiology results, the need for outpatient follow up, to return to the emergency department if symptoms worsen or persist or if there are any questions or concerns that arise at home. 16:05 ED course: Consultation with Dr. Stein regarding patient's presentation of illness, pm1 labs, and studies. Patient with elevated WBC. Negative lactate and procalcitonin. Patient's only current complaint of pain is right ear and acute right otitis media is present. Patient with surgery 2 weeks ago and without abdominal pain. CT of abd/pelvis negative for abscess. Chest xray negative for pneumonia. Patient's only source of infection appears to be right AOM. Therefore will discharge the patient home with Augmentin. 04/01 12:18 Order name: Basic Metabolic Panel; Complete Time: 13:32 pm1 04/01 12:18 Order name: CBC with Diff; Complete Time: 13:32 pm1 04/01 12:18 Order name: Creatinine for Radiology; Complete Time: 13:32 pm1 04/01 12:18 Order name: Hepatic Function; Complete Time: 13:32 pm1 04/01 12:18 Order name: Lipase; Complete Time: 13:32 pm1 04/01 12:18 Order name: Procalcitonin; Complete Time: 13:41 pm1 04/01 12:18 Order name: Lactate; Complete Time: 13:32 pm1 04/01 12:18 Order name: Flu; Complete Time: 13:32 pm1 04/01 12:48 Order name: Manual Differential; Complete Time: 13:32 EDMS 04/01 12:49 Order name: Blood Culture Adult (2) pm1 04/01 13:58 Order name: Urine Microscopic Only; Complete Time: 15:02 04/01 14:00 Order name: Urine Dipstick--Ancillary (enter results) eb 04/01 14:00 Order name: Urine --Ancillary (enter results); Complete Time: 06:42 eb 04/01 12:18 Order name: IV Saline Lock; Complete Time: 12:22 pm1 04/01 12:18 Order name: Labs collected and sent; Complete Time: 12:22 pm1 04/01 12:18 Order name: Urine Dipstick-Ancillary (obtain specimen); Complete Time: 13:52 pm1 04/01 12:18 Order name: Urine Test (obtain specimen); Complete Time: 13:52 pm1 04/01 12:49 Order name: Chest Single View XRAY; Complete Time: 13:32 pm1 04/01 14:01 Order name: Urine Dipstick-Ancillary; Complete Time: 06:42 EDMS 04/01 15:11 Order name: CT Abd/Pelvis - W/Contrast: IV contrast only; Complete Time: 15:58 pm1 Administered Medications: Discontinued: NS 0.9% 1000 ml IV at 125 ml/hr continuous 12:21 Drug: NS 0.9% 1000 ml Route: IV; Rate: 1000 ml; Site: right upper arm; hj 12:36 Follow up: IV Status: Completed infusion hj 12:21 Drug: Zofran 4 mg Route: IVP; Site: right upper arm; hj 12:35 Follow up: Response: No adverse reaction; Nausea is decreased hj 12:21 Drug: Tylenol 1000 mg Route: PO; hj 12:35 Follow up: Response: No adverse reaction; Pain is decreased hj 12:27 Drug: morphine 4 mg Route: IVP; Site: right upper arm; hj 12:36 Follow up: Response: No adverse reaction hj 12:59 Drug: Rocephin 1 grams Route: IV; Rate: calculated rate; Site: right upper arm; hj 16:28 Follow up: IV Status: Completed infusion hj 12:59 Drug: Albuterol - atroVENT (3:1) (2.5 mg - 0.5 mg) 3 ml Route: Nebulizer; hj 13:27 Follow up: Response: No adverse reaction; Wheezing diminished hj 16:28 Follow up: Response: No adverse reaction; Wheezing diminished hj 15:57 Drug: Tylenol 1000 mg Route: PO; hj 16:07 Follow up: Response: No adverse reaction; Temperature is decreased hj 16:08 Follow up: Response: No adverse reaction 15:57 Drug: NS 0.9% 1000 ml Route: IV; Rate: 125 ml/hr; Site: right upper arm; 16:30 Follow up: IV Status: Order to discontinue infusion; IV Intake: 350ml Disposition: 04/01/18 16:04 Discharged to Home. Impression: Otitis media, unspecified, right ear, Nausea and vomiting. - Condition is Stable. - Discharge Instructions: Nausea and Vomiting, Adult, Otitis Media, Adult, [id number]. - Prescriptions for Augmentin 875- 125 mg Oral Tablet - take 1 tablet by ORAL route every 12 hours for 10 days; 20 tablet. Tylenol- Codeine #3 300-30 mg Oral Tablet - take 2 tablets by ORAL route every 6 hours As needed; 20 tablet. Zofran 4 mg Oral Tablet - take 1 tablet by ORAL route every 8 hours As needed; 20 tablet. - Medication Reconciliation Form, Thank You Letter, Antibiotic Education, Prescription Opioid Use form. - Follow up: Emergency Department; When: As needed; Reason: Worsening of condition. Follow up: Private Physician; When: 2 - 3 days; Reason: Recheck today's complaints, Continuance of care, Re-evaluation by your physician. - Problem is new. - Symptoms have improved. Addendum: 04/03/2018 13:28 Co-signature as Attending Physician, Eugene Stein MD I agree with the assessment and k dr plan of care. Signatures: Dispatcher [employer] EDID Eugene Stein MD MD [facility] Kwasi Lester RN RN Roni Guzman NP JEWELRY SETTER pm1 Corrections: (The following items were deleted from the chart) 04/01 16:05 16:04 04/01/2018 16:04 Discharged to Home. Impression: Otitis media, unspecified, right pm1 ear. Condition is Stable. Forms are Medication Reconciliation Form, Thank You Letter, Antibiotic Education, Prescription Opioid Use. Follow up: Emergency Department; When: As needed; Reason: Worsening of condition. Follow up: Private Physician; When: 2 - 3 days; Reason: Recheck today's complaints, Continuance of care, Re-evaluation by your physician. Problem is new. Symptoms have improved. pm1 16:29 16:05 04/01/2018 16:04 Discharged to Home. Impression: Otitis media, unspecified, right hj ear; Nausea and vomiting. Condition is Stable. Forms are Medication Reconciliation Form, Thank You Letter, Antibiotic Education, Prescription Opioid Use. Follow up: Emergency Department; When: As needed; Reason: Worsening of condition. Follow up: Private Physician; When: 2 - 3 days; Reason: Recheck today's complaints, Continuance of care, Re-evaluation by your physician. Problem is new. Symptoms have improved. pm1
[2018-04-01 18:47] LABS: Urine Blood NEGATIVE (NEG); Urine Glucose NEGATIVE (NEG); Urine Protein NEGATIVE (NEG); Urine Specific Gravity 1.015 (1.005-1.030)
== END 2018-04-01 16:29 | disposition home or self-care (01) ==
LOC: ER 11:58
DX: H66.91 Otitis media, unspecified, right ear (principal); Z72.0 Tobacco use; Z88.5 Allergy status to narcotic agent; Z88.8 Allergy status to other drugs, medicaments and biological substances
CPT/HCPCS: 36415; 71045; 74177; 80048; 80076; 81003; 81015; 81025; 83605; 83690; 84145; 85025; 87040; 87077; 87186; 87205; 87804; 94640; 96365; 96366; 96375; 99285; J0696; J2405; J7030; Q9967

== ENCOUNTER 2018-04-03 18:12 | Emergency (ER) | payer SELFPAY ==
[2018-04-03 19:47] LABS: Urine Bacteria <20 /HPF (<20); Urine Culture Reflex Order NOT NEEDED; Urine RBC <5 /HPF (NONE SEEN)
[2018-04-03 19:52] LABS: Absolute Lymphocytes (CBC) 3.1 K/uL (0.7-4.9); Absolute Monocytes 0.7 K/uL (0.1-1.3); Absolute Neutrophil 4.3 K/uL (1.8-8.0); Basophils % 0.6 % (0-1.3); Eosinophils % 10.1 % (0-4.4); Lymphocytes % 34.7 % (15.3-44.8); MCH 31.8 pg (27.0-35.0); MCV 92.6 fL (80-100); MPV 9.5 fL (7.6-11.3); Monocytes % 7.2 % (3.3-12.3); RBC Red Blood Cell Count 3.89 M/uL (3.86-4.86)
[2018-04-03 19:56] LABS: Protime INR 1.03
--- NOTE | 2018-04-03 19:58 | RAD REPORT ---
EXAM DESCRIPTION: US - Extremity Venous Uni Ltd - 04/03/2018 7:09 pm CLINICAL HISTORY: Left leg pain and swelling COMPARISON: None. TECHNIQUE: Real-time sonographic evaluation of the left lower extremity deep venous system was perfo rmed. FINDINGS: Normal compressibility, flow augmentation, phasic flow and spontaneous flow are identified in the left lower extremity common femoral, superficial femoral, popliteal and posterior tibial vein s. No intraluminal filling defects seen. IMPRESSION: No DVT in the left lower extremity.
[2018-04-03 20:03] LABS: Urine Blood NEGATIVE (NEG); Urine Glucose NEGATIVE (NEG); Urine Protein NEGATIVE (NEG); Urine Specific Gravity 1.025 (1.005-1.030)
[2018-04-03 20:04] LABS: Albumin 3.5 g/dL (3.4-5.0); Bilirubin Direct 0.1 mg/dL (0-0.2); Bilirubin Total 0.2 mg/dL (0.2-1.0); Potassium 3.6 mmol/L (3.5-5.1); Protein, Total 7.3 g/dL (6.4-8.2)
[2018-04-03] MEDS ORDERED: ONDANSETRON 4 MG/2 ML VIAL ONE (20:15)
[2018-04-03] MEDS ORDERED: MORPHINE 4 MG/ML SYR ONE (20:15)
--- NOTE | 2018-04-03 22:20 | EDPHYS ---
Physician Documentation [facility] Name: Belem Weldon Age: 53 yrs Sex: Female : 1965 Arrival Date: 04/03/2018 Time: 18:14 Bed 25 Private MD: ED Physician Dandre Snell HPI: 04/03 19:00 This 53 yrs old Female presents to ER via Ambulatory with complaints of Left pm1 Foot Pain. 19:00 The patient presents with pain, swelling. The complaints affect the left foot. Context: pm1 The problem was sustained at home, resulted from On and off chronic swelling to left lower foot after patient had surgical removal of cyst on dorsum of left foot many years ago, the patient can fully bear weight, the patient is able to ambulate. Onset: The symptoms/episode began/occurred Onset of left foot pain and swelling yesterday per daughter and patient. Modifying factors: The symptoms are alleviated by nothing. the symptoms are aggravated by nothing. Associated signs and symptoms: Pertinent positives: fever, Pertinent negatives calf tenderness, nausea, vomiting. Treatment prior to arrival includes: no previous treatment, Last took antipyretic yesterday. Severity of symptoms: in the emergency department the symptoms are actually worse. The patient has experienced similar episodes in the past, multiple times. The patient has been recently seen at the [facility] Emergency Department, 2 days ago and diagnosed with right AOM. Patient with resolution of right ear pain with Augmentin prescribed. Patient without any chest pain or shortness of breath. 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 - Social history:: Smoking status: Patient uses tobacco products, smokes one pack cigarettes per day. - Ebola Screening: : No symptoms or risks identified at this time. ROS: 19:00 Constitutional: Negative for fever, chills, and weight loss, Eyes: Negative for injury, pm1 pain, redness, and discharge, ENT: Negative for injury, pain, and discharge, Neck: Negative for injury, pain, and swelling, Cardiovascular: Negative for chest pain, palpitations, and edema, Respiratory: Negative for shortness of breath, cough, wheezing, and pleuritic chest pain, Abdomen/GI: Negative for abdominal pain, nausea, vomiting, diarrhea, and constipation, Back: Negative for injury and pain, : Negative for injury, bleeding, discharge, and swelling. 19:00 Skin: Negative for injury, rash, and discoloration, Neuro: Negative for headache, weakness, numbness, tingling, and seizure. 19:00 MS/extremity: Positive for pain, swelling, of the left foot, Negative for decreased range of motion, deformity. Exam: 19:00 Constitutional: This is a well developed, well nourished patient who is awake, alert, pm1 and in no acute distress. Head/Face: Normocephalic, atraumatic. Eyes: Pupils equal round and reactive to light, extra-ocular motions intact. Lids and lashes normal. Conjunctiva and sclera are non-icteric and not injected. Cornea within normal limits. Periorbital areas with no swelling, redness, or edema. ENT: Nares patent. No nasal discharge, no septal abnormalities noted. Tympanic membranes are normal and external auditory canals are clear. Oropharynx with no redness, swelling, or masses, exudates, or evidence of obstruction, uvula midline. Mucous membranes moist. Neck: Trachea midline, no thyromegaly or masses palpated, and no cervical lymphadenopathy. Supple, full range of motion without nuchal rigidity, or vertebral point tenderness. No Meningismus. Chest/axilla: Normal chest wall appearance and motion. Nontender with no deformity. No lesions are appreciated. Cardiovascular: Regular rate and rhythm with a normal S1 and S2. No gallops, murmurs, or rubs. Normal PMI, no JVD. No pulse deficits. Respiratory: Lungs have equal breath sounds bilaterally, clear to auscultation and percussion. No rales, rhonchi or wheezes noted. No increased work of breathing, no retractions or nasal flaring. Abdomen/GI: Soft, non-tender, with normal bowel sounds. No distension or tympany. No guarding or rebound. No evidence of tenderness throughout. Back: No spinal tenderness. No costovertebral tenderness. Full range of motion. Skin: Warm, dry with normal turgor. Normal color with no rashes, no lesions, and no evidence of cellulitis. 19:00 Musculoskeletal/extremity: Extremities: grossly normal except: noted in the left foot: swelling, tenderness, There is no evidence of decreased ROM, deformity. Vital Signs: 18:19 BP 151 / 81; Pulse 93; Resp 16; Temp 97.2; Pulse Ox 98% on R/A; Weight 86.64 kg; Height la1 5 ft. 7 in. (170.18 cm); 19:39 BP 143 / 74; Pulse 85; Resp 18; Temp 99.3(O); Pulse Ox 97% ; tl3 21:13 BP 144 / 61; Pulse 82; Resp 18; Pulse Ox 100% ; tl3 18:19 Body Mass Index 29.91 (86.64 kg, 170.18 cm) la1 MDM: 18:30 Patient medically screened. clif[place] 21:41 Data reviewed: vital signs. Data interpreted: Pulse oximetry: on room air is 100 %. pm1 Interpretation: normal. 22:14 Counseling: I had a detailed discussion with the patient and/or guardian regarding: the pm1 historical points, exam findings, and any diagnostic results supporting the discharge/admit diagnosis, lab results, radiology results, need for imaging of left foot for further diagnosis and intervention. Patient does not want imaging and wants antibiotics. Patient wants to go home.. 22:14 Refusal of service: The patient/guardian displays adequate decision making capability pm1 and despite a detailed discussion of alternatives, benefits, risks, and consequences refuses: Admission to the hospital for further work-up and treatment, CT Scan, all X-rays, Patient does not want to have an x-ray of her foot or CT scan of her foot. Patient wants to go home with a prescription for antibiotics. Patient does not want to be admit. 22:14 ED course: Will discharge patient home with clindamycin for left foot cellulitis. pm1 Instructed patient on return precautions. Instructed patient to continue taking Augmentin with new prescription for clindamycin. 04/03 18:46 Order name: Basic Metabolic Panel pm1 04/03 18:46 Order name: CBC with Diff; Complete Time: 20:05 pm1 04/03 18:46 Order name: Lactate; Complete Time: 20:05 pm1 04/03 18:46 Order name: LFT's; Complete Time: 20:05 pm1 04/03 18:46 Order name: Lipase; Complete Time: 20:05 pm1 04/03 18:46 Order name: Procalcitonin; Complete Time: 21:32 pm1 04/03 18:46 Order name: Protime (+inr); Complete Time: 20:05 pm1 04/03 18:46 Order name: Ptt, Activated; Complete Time: 20:05 pm1 04/03 18:46 Order name: Urine Microscopic Only; Complete Time: 20:05 pm1 04/03 18:46 Order name: Basic Metabolic Panel; Complete Time: 20:05 EDMS 04/03 19:34 Order name: Urine Dipstick--Ancillary (enter results); Complete Time: 20:05 ms 04/03 19:34 Order name: Urine --Ancillary (enter results); Complete Time: 20:05 ms 04/03 18:42 Order name: Extremity Venous Uni Ltd US; Complete Time: 20:05 pm1 04/03 18:46 Order name: Urine Test (obtain specimen); Complete Time: 19:41 pm1 04/03 18:46 Order name: Cardiac monitoring; Complete Time: 19:08 pm1 04/03 18:46 Order name: IV Saline Lock - Large Bore; Complete Time: 19:51 pm1 04/03 18:46 Order name: Labs collected and sent; Complete Time: 19:41 pm1 04/03 18:46 Order name: O2 Per Protocol; Complete Time: 19:08 pm1 04/03 18:46 Order name: O2 Sat Monitoring; Complete Time: 19:08 pm1 04/03 18:46 Order name: Urine Dipstick-Ancillary (obtain specimen); Complete Time: 19:41 pm1 Administered Medications: 20:14 Drug: Zofran 4 mg Route: IVP; Infused Over: 2 mins; Site: left antecubital; tl3 20:45 Follow up: Response: No adverse reaction tl3 20:15 Drug: morphine 4 mg Route: IVP; Infused Over: 2 mins; Site: left antecubital; tl3 20:45 Follow up: Response: Pain is decreased tl3 22:30 Drug: Clindamycin 900 mg Route: IVPB; Infused Over: 30 mins; Site: left antecubital; tl3 Delivery: Primary tubing; 22:56 Drug: fentaNYL (PF) 25 mcg Route: IVP; Infused Over: 2 mins; Site: left antecubital; tl3 Disposition: 04/03/18 22:19 Discharged to Home. Impression: Cellulitis of left lower limb - left foot. - Condition is Undetermined. - Discharge Instructions: Cellulitis, Adult. - Prescriptions for Clindamycin HCl 300 mg Oral Capsule - take 1 capsule by ORAL route every 6 hours for 10 days; 40 capsule. Tylenol- Codeine #3 300-30 mg Oral Tablet - take 2 tablets by ORAL route every 6 hours As needed; 20 tablet. - Medication Reconciliation Form, Thank You Letter, Antibiotic Education, Prescription Opioid Use form. - Follow up: Emergency Department; When: As needed; Reason: Worsening of condition. Follow up: Private Physician; When: 2 - 3 days; Reason: Recheck today's complaints, Continuance of care, Re-evaluation by your physician. - Problem is new. - Symptoms have improved. Addendum: 04/05/2018 07:20 Co-signature as Attending Physician, Dandre Snell MD I agree with the assessment and c cameron plan of care. Signatures: Dispatcher [employer] [facility] Dandre Snell MD MD cha Attema, Lee, RN RN la1 Roni Guzman, CLIENT SUCCESS SPECIALIST CLIENT SUCCESS SPECIALIST pm1 Lissette Parra, RN RN tl3 Corrections: (The following items were deleted from the chart) 04/03 19:21 18:42 Foot Left 3 View+RAD.RAD.BRZ ordered. [facility] 19:41 18:46 EKG - Nurse/Tech ordered. pm1 tl3 19:50 18:46 BLOOD CULTURE*+BA.LAB.BRZ ordered. [facility] 23:50 22:19 04/03/2018 22:19 Discharged to Home. Impression: Cellulitis of left lower limb - tl3 left foot. Condition is Undetermined. Forms are Medication Reconciliation Form, Thank You Letter, Antibiotic Education, Prescription Opioid Use. Follow up: Emergency Department; When: As needed; Reason: Worsening of condition. Follow up: Private Physician; When: 2 - 3 days; Reason: Recheck today's complaints, Continuance of care, Re-evaluation by your physician. Problem is new. Symptoms have improved. pm1
--- NOTE | 2018-04-03 22:20 | ER ---
Nurse's Notes [facility] Name: Belem Weldon Age: 53 yrs Sex: Female : 1965 Arrival Date: 04/03/2018 Time: 18:14 Bed 25 Private MD: Diagnosis: Cellulitis of left lower limb-left foot Presentation: 04/03 18:18 Presenting complaint: Patient states: My left foot has been swollen and red for the la1 past 3 days and I had a fever at home. Transition of care: patient was not received from another setting of care. Onset of symptoms was April 03, 2018. Risk Assessment: Do you want to hurt yourself or someone else? Patient reports no desire to harm self or others. Initial Sepsis Screen: Does the patient meet any 2 criteria? No. Patient's initial sepsis screen is negative. Does the patient have a suspected source of infection? No. Patient's initial sepsis screen is negative. Care prior to arrival: None. 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 - Social history:: Smoking status: Patient uses tobacco products, smokes one pack cigarettes per day. - Ebola Screening: : No symptoms or risks identified at this time. Screenin:40 Abuse screen: Denies threats or abuse. Nutritional screening: No deficits noted. tl3 Tuberculosis screening: No symptoms or risk factors identified. Fall Risk None identified. Assessment: 18:40 General: Appears uncomfortable, well groomed, well developed, well nourished, Behavior tl3 is calm, cooperative, appropriate for age. Pain: Complains of pain in left foot. Pain: Pain began 1 day ago. Neuro: No deficits noted. Level of Consciousness is awake, alert, obeys commands, Oriented to person, place, time, situation, Appropriate for age. Cardiovascular: No deficits noted. Capillary refill < 3 seconds in left toes Patient's skin is warm and dry. Respiratory: Airway is patent Respiratory effort is even, unlabored, Respiratory pattern is regular, symmetrical. GI: No deficits noted. No signs and/or symptoms were reported involving the gastrointestinal system. : No deficits noted. No signs and/or symptoms were reported regarding the genitourinary system. Urine is clear. EENT: No signs and/or symptoms were reported regarding the EENT system. Derm: No signs and/or symptoms reported regarding the dermatologic system. Musculoskeletal: No signs and/or symptoms reported regarding the musculoskeletal system. Reports left foot swelling on/off for last 15 years after cyst removal to dorsal aspect of foot. 19:39 Reassessment: No changes from previously documented assessment. Patient and/or family tl3 updated on plan of care and expected duration. Pain level reassessed. Patient is alert, oriented x 3, equal unlabored respirations, skin warm/dry/pink. 21:11 Reassessment: Patient appears in no apparent distress at this time. No changes from tl3 previously documented assessment. Patient and/or family updated on plan of care and expected duration. Pain level reassessed. Patient is alert, oriented x 3, equal unlabored respirations, skin warm/dry/pink. Roni discussed POC with pt and family. Vital Signs: 18:19 BP 151 / 81; Pulse 93; Resp 16; Temp 97.2; Pulse Ox 98% on R/A; Weight 86.64 kg; Height la1 5 ft. 7 in. (170.18 cm); 19:39 BP 143 / 74; Pulse 85; Resp 18; Temp 99.3(O); Pulse Ox 97% ; tl3 21:13 BP 144 / 61; Pulse 82; Resp 18; Pulse Ox 100% ; tl3 18:19 Body Mass Index 29.91 (86.64 kg, 170.18 cm) la1 ED Course: 18:14 Patient arrived in ED. tw3 18:18 Triage completed. la1 18:19 Arm band placed on left wrist. la1 18:20 Lissette Parra, ALINE is Primary Nurse. tl3 18:29 Roni Guzman NP is PHCP. pm1 18:29 Dandre Snell MD is Attending Physician. pm1 18:40 Patient has correct armband on for positive identification. Bed in low position. Call tl3 light in reach. Side rails up X 1. Adult w/ patient. 18:40 No provider procedures requiring assistance completed. tl3 19:06 Ultrasound completed. Patient tolerated well. Notified POWER TRANSFORMER INSPECTOR/VLADIMIR orta . sg3 19:09 Extremity Venous Uni Ltd US In Process Unspecified. EDMS 19:39 Warm blanket given. tl3 19:39 Urine collected:. Inserted saline lock: 20 gauge in left antecubital area, using tl3 aseptic technique. Blood collected. 19:44 pt refused blood cultures. tl3 19:51 Basic Metabolic Panel Sent. tl3 Administered Medications: 20:14 Drug: Zofran 4 mg Route: IVP; Infused Over: 2 mins; Site: left antecubital; tl3 20:45 Follow up: Response: No adverse reaction tl3 20:15 Drug: morphine 4 mg Route: IVP; Infused Over: 2 mins; Site: left antecubital; tl3 20:45 Follow up: Response: Pain is decreased tl3 22:30 Drug: Clindamycin 900 mg Route: IVPB; Infused Over: 30 mins; Site: left antecubital; tl3 Delivery: Primary tubing; 22:56 Drug: fentaNYL (PF) 25 mcg Route: IVP; Infused Over: 2 mins; Site: left antecubital; tl3 Outcome: 22:19 Discharge ordered by MD. pm1 23:50 Patient left the ED. tl3 23:50 Discharged to home ambulatory. tl3 23:50 Condition: stable 23:50 Discharge instructions given to patient, Instructed on discharge instructions, follow up and referral plans. Demonstrated understanding of instructions, follow-up care, medications, Prescriptions given X 2. Signatures: Dispatcher [employer] EDHubert Márquez RN RN la1 Roni Guzman, POWER TRANSFORMER INSPECTOR POWER TRANSFORMER INSPECTOR pm1 Emelina Waldron tw3 Prisca Ybarra sg3 Lissette Parra, ALINE RN tl3 Corrections: (The following items were deleted from the chart) 20:32 19:39 BP 143 / 74; Pulse 85bpm; Resp 18bpm; Pulse Ox 97%; tl3 tl3
[2018-04-03] MEDS ORDERED: FENTANYL CITR 100 MCG/2 ML ONE (22:44)
[2018-04-03] MEDS ORDERED: CLINDAMYCIN 900MG/D5W 900 MG/50 ML BAG IV ONE (22:44)
== END 2018-04-03 23:50 | disposition home or self-care (01) ==
LOC: ER 18:12
DX: L03.116 Cellulitis of left lower limb (principal); Z88.6 Allergy status to analgesic agent
CPT/HCPCS: 36415; 80048; 80076; 81003; 81015; 81025; 83605; 83690; 84145; 85025; 85610; 85730; 93971; 96374; 96375; 99284; J2405; J3010

== ENCOUNTER 2018-05-06 08:55 | Emergency (ER) | payer SELFPAY ==
--- NOTE | 2018-05-06 10:06 | RAD REPORT ---
EXAM DESCRIPTION: RAD - Humerus Right - 05/06/2018 9:43 am CLINICAL HISTORY: PAIN COMPARISON: No comparisons FINDINGS: Calcifications are seen involving the distal supraspinatus tendon compatible with calcific tendinitis. AC joint degenerative changes are present. No fracture or dislocation is present. IMPRESSION: Mild calcific tendinitis.
--- NOTE | 2018-05-06 10:17 | EDPHYS ---
Physician Documentation [facility] Name: Belem Weldon Age: 53 yrs Sex: Female : 1965 Arrival Date: 05/06/2018 Time: 08:58 Bed 13 Private MD: ED Physician Randy Berman HPI: 05/06 09:27 This 53 yrs old Female presents to ER via Ambulatory with complaints of Arm kav Pain. 09:28 The patient or guardian complains of pain, that is acute. The complaints affect the kav right bicep. Context: resulted from unknown cause. Onset: The symptoms/episode began/occurred acutely, 2 day(s) ago. Treatment prior to arrival includes: over the counter medications, Tylenol. Modifying factors: The symptoms are alleviated by nothing. the symptoms are aggravated by nothing. Associated signs and symptoms: Pertinent positives: pain, Pertinent negatives: deformity, erythema, numbness, swelling, warmth, weakness. Severity of symptoms: At their worst the symptoms were moderate, just prior to arrival. The patient has experienced a previous episode, approximately 2 months ago. [place] [facility]. Patient reports being seen recently for LUE Humeral and Bicep pain and given a RX: Robaxin 500 mg and Tylenol # 3 and advised to f/u with Orthopaedic Physician and MRI. Patient has not followed up with PCP and or Orthopaedic Surgeon as she "...has no insurance and cannot afford to see anyone". She reports that the Robaxing 500 mg and Tylenol # 3 did not help with her LUE pain. She reports that the pain "...jumped from the LUE to the RUE". She also reports that she cannot take Cyclobenzaprine because "...it makes her legs get tight and hurt". She reports RUE Humeral and Bicep pain rated at 9/10.. 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 - Ebola Screening: : Patient negative for fever greater than or equal to 101.5 degrees Fahrenheit, and additional compatible Ebola Virus Disease symptoms Patient denies exposure to infectious person Patient denies travel to an Ebola-affected area in the 21 days before illness onset No symptoms or risks identified at this time. - Family history:: not pertinent. - Social history:: Smoking status: Patient uses tobacco products, smokes one-half pack cigarettes per day. - Hospitalizations: : No recent hospitalization is reported. ROS: 09:28 Constitutional: Negative for fever, chills, and weight loss, Eyes: Negative for injury, kav pain, redness, and discharge, ENT: Negative for injury, pain, and discharge, Neck: Negative for injury, pain, and swelling, Cardiovascular: Negative for chest pain, palpitations, and edema, Respiratory: Negative for shortness of breath, cough, wheezing, and pleuritic chest pain, Abdomen/GI: Negative for abdominal pain, nausea, vomiting, diarrhea, and constipation, Back: Negative for injury and pain, : Negative for injury, bleeding, discharge, and swelling, Skin: Negative for injury, rash, and discoloration, Neuro: Negative for headache, weakness, numbness, tingling, and seizure, Psych: Negative for depression, anxiety, suicide ideation, homicidal ideation, and hallucinations, Allergy/Immunology: Negative for hives, rash, and allergies, Endocrine: Negative for neck swelling, polydipsia, polyuria, polyphagia, and marked weight changes, Hematologic/Lymphatic: Negative for swollen nodes, abnormal bleeding, and unusual bruising. 09:28 MS/extremity: Positive for pain, Negative for injury or acute deformity, contusion, decreased range of motion, deformity, ecchymosis, erythema, paresthesias, swelling, tingling, warmth. Exam: 09:28 Constitutional: This is a well developed, well nourished patient who is awake, alert, kav and in no acute distress. Head/Face: Normocephalic, atraumatic. Eyes: Pupils equal round and reactive to light, extra-ocular motions intact. Lids and lashes normal. Conjunctiva and sclera are non-icteric and not injected. Cornea within normal limits. Periorbital areas with no swelling, redness, or edema. ENT: Nares patent. No nasal discharge, no septal abnormalities noted. Tympanic membranes are normal and external auditory canals are clear. Oropharynx with no redness, swelling, or masses, exudates, or evidence of obstruction, uvula midline. Mucous membranes moist. Neck: Trachea midline, no thyromegaly or masses palpated, and no cervical lymphadenopathy. Supple, full range of motion without nuchal rigidity, or vertebral point tenderness. No Meningismus. Chest/axilla: Normal chest wall appearance and motion. Nontender with no deformity. No lesions are appreciated. Cardiovascular: Regular rate and rhythm with a normal S1 and S2. No gallops, murmurs, or rubs. Normal PMI, no JVD. No pulse deficits. Respiratory: Lungs have equal breath sounds bilaterally, clear to auscultation and percussion. No rales, rhonchi or wheezes noted. No increased work of breathing, no retractions or nasal flaring. Abdomen/GI: Soft, non-tender, with normal bowel sounds. No distension or tympany. No guarding or rebound. No evidence of tenderness throughout. Back: No spinal tenderness. No costovertebral tenderness. Full range of motion. Skin: Warm, dry with normal turgor. Normal color with no rashes, no lesions, and no evidence of cellulitis. Neuro: Awake and alert, GCS 15, oriented to person, place, time, and situation. Cranial nerves II-XII grossly intact. Motor strength 5/5 in all extremities. Sensory grossly intact. Cerebellar exam normal. Normal gait. Psych: Awake, alert, with orientation to person, place and time. Behavior, mood, and affect are within normal limits. 09:28 Musculoskeletal/extremity: Extremities: noted in the right bicep: pain, ROM: full active range of motion, in the right bicep, full passive range of motion, in the , Circulation is intact in all extremities. Pulses: noted to be 2+ in the right radial artery, right brachial artery, left brachial artery, bilateral radial, brachial, femoral, popliteal, posterior tibial, and dorsalis pedis arteries., left carotid pulse and right carotid pulse, Sensation intact. Joints: All joints appear normal with full range of motion. Tendon exam: specific tendon testing normal through active and passive range of motion DVT Exam: No signs of deep vein thrombosis. no pain, no swelling, no tenderness, negative Homans' sign noted on exam, no appreciated bluish discoloration, no erythema, no increased warmth. Vital Signs: 09:11 BP 137 / 75; Pulse 72; Resp 16 S; Pulse Ox 100% on R/A; Weight 89.36 kg; Height 5 ft. 7 iw in. (170.18 cm); Pain 9/10; 10:26 BP 128 / 84; Pulse 76; Resp 18; Temp 98.3; Pulse Ox 99% on R/A; Pain 5/10; ch 09:11 Body Mass Index 30.85 (89.36 kg, 170.18 cm) MDM: 09:11 Medical screening is not applicable. ka 09:28 Data reviewed: vital signs, nurses notes. ka 10:14 Data reviewed: radiologic studies, plain films. ka 05/06 09:27 Order name: Humerus Right XRAY; Complete Time: 10:14 ka Administered Medications: 10:00 Drug: [place] (7.5 mg-325 mg) 1 tabs Route: PO; ch 10:26 Follow up: Response: No adverse reaction ch Disposition: 11:05 Co-signature as Attending Physician, Randy Berman MD. rn Disposition: 05/06/18 10:16 Discharged to Home. Impression: Calcific tendinitis. - Condition is Stable. - Prescriptions for Ultracet 37.5- 325 mg Oral Tablet - take 1 tablet by ORAL route every 6 hours - for up to 5 days; do not exceed 8 tablets per day.; 30 tablet. - Medication Reconciliation Form, Thank You Letter form. - Follow up: Private Physician; When: 5 - 6 days; Reason: Recheck today's complaints, Continuance of care, Re-evaluation by your physician. - Problem is new. - Symptoms have improved. Signatures: Dispatcher [employer] Ashley Davenport RN RN Carrol Guerin, DISEASE CONTROL INSPECTOR DISEASE CONTROL INSPECTOR Brea Block, RN Randy Butler MD MD advertising intern: (The following items were deleted from the chart) 10:29 10:16 05/06/2018 10:16 Discharged to Home. Impression: Calcific tendinitis. Condition ch is Stable. Forms are Medication Reconciliation Form, Thank You Letter, Antibiotic Education, Prescription Opioid Use. Follow up: Private Physician; When: 5 - 6 days; Reason: Recheck today's complaints, Continuance of care, Re-evaluation by your physician. Problem is new. Symptoms have improved. kav
--- NOTE | 2018-05-06 10:17 | ER ---
Nurse's Notes [facility] Name: Belem Weldon Age: 53 yrs Sex: Female : 1965 Arrival Date: 05/06/2018 Time: 08:58 Bed 13 Private MD: Diagnosis: Calcific tendinitis Presentation: 05/06 09:09 Presenting complaint: Patient states: pain to right arm, from right shoulder to right iw elbow X 2 days, had similar pain to left arm a week ago and had xray done at [facility], was told the muscle was tearing away from the bone. Transition of care: patient was not received from another setting of care. Onset of symptoms was May 06, 2018. Risk Assessment: Do you want to hurt yourself or someone else? Patient reports no desire to harm self or others. Initial Sepsis Screen: Does the patient meet any 2 criteria? No. Patient's initial sepsis screen is negative. Does the patient have a suspected source of infection? No. Patient's initial sepsis screen is negative. Care prior to arrival: None. 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 - Ebola Screening: : Patient negative for fever greater than or equal to 101.5 degrees Fahrenheit, and additional compatible Ebola Virus Disease symptoms Patient denies exposure to infectious person Patient denies travel to an Ebola-affected area in the 21 days before illness onset No symptoms or risks identified at this time. - Family history:: not pertinent. - Social history:: Smoking status: Patient uses tobacco products, smokes one-half pack cigarettes per day. - Hospitalizations: : No recent hospitalization is reported. Screenin:26 Abuse screen: Denies threats or abuse. Denies injuries from another. Nutritional ch screening: No deficits noted. Tuberculosis screening: No symptoms or risk factors identified. Fall Risk None identified. Assessment: 10:26 General: Appears in no apparent distress. comfortable, Behavior is calm, cooperative, ch appropriate for age. Pain: Complains of pain in right arm and left arm Pain currently is 5 out of 10 on a pain scale. Pain began gradually. Neuro: No deficits noted. Cardiovascular: No deficits noted. Respiratory: No deficits noted. GI: No deficits noted. : No deficits noted. : No signs and/or symptoms were reported regarding the genitourinary system. Derm: Skin is pink, warm \T\ dry. Musculoskeletal: Circulation, motion, and sensation intact. Capillary refill < 3 seconds. Vital Signs: 09:11 BP 137 / 75; Pulse 72; Resp 16 S; Pulse Ox 100% on R/A; Weight 89.36 kg; Height 5 ft. 7 iw in. (170.18 cm); Pain 9/10; 10:26 BP 128 / 84; Pulse 76; Resp 18; Temp 98.3; Pulse Ox 99% on R/A; Pain 5/10; ch 09:11 Body Mass Index 30.85 (89.36 kg, 170.18 cm) iw ED Course: 08:58 Patient arrived in ED. as 09:07 Ashley Ponce, ALINE is Primary Nurse. ch 09:11 Carrol Scott FNP is PHCP. kav 09:11 Randy Berman MD is Attending Physician. kav 09:11 Triage completed. iw 09:43 Humerus Right XRAY In Process Unspecified. EDMS 09:43 X-ray completed. Portable x-ray completed in exam room. Patient tolerated procedure jb2 well. 10:26 No apparent distress. Resting quietly. ch 10:26 Patient has correct armband on for positive identification. Placed in gown. Bed in low ch position. Call light in reach. Side rails up X2. Administered Medications: 10:00 Drug: [place] (7.5 mg-325 mg) 1 tabs Route: PO; ch 10:26 Follow up: Response: No adverse reaction ch Outcome: 10:16 Discharge ordered by . kav 10:26 Discharged to home ambulatory, with family. ch 10:26 Condition: improved 10:26 Discharge instructions given to patient, Instructed on discharge instructions, follow up and referral plans. medication usage, Demonstrated understanding of instructions, follow-up care, medications, Prescriptions given X 1. 10:29 Patient left the ED. Signatures: Dispatcher [employer] EDND PonceAshley RN RN ch Vern, Katherine, TECHNICIAN SUPPORT ENGINEER TECHNICIAN SUPPORT ENGINEER Oscar Sheppard Amelia as Williams, Irene, RN RN iw Corrections: (The following items were deleted from the chart) :13 09:11 BP 137 / 75; Pulse 72bpm; Resp 16bpm; Spontaneous; iw iw
[2018-05-06] MEDS ORDERED: HYDROCODONE/APAP 7.5/325 MG TAB ONE (10:19)
== END 2018-05-06 10:29 | disposition home or self-care (01) ==
LOC: ER 08:55
DX: M65.221 Calcific tendinitis, right upper arm (principal); F17.210 Nicotine dependence, cigarettes, uncomplicated; Z88.5 Allergy status to narcotic agent; Z88.6 Allergy status to analgesic agent; Z88.8 Allergy status to other drugs, medicaments and biological substances
CPT/HCPCS: 99283

== ENCOUNTER 2018-06-03 09:00 | Emergency (ER) | payer SELFPAY ==
[2018-06-03] MEDS ORDERED: ALBUTEROL 2.5 MG/3 ML NEB SOL ONE (09:43)
[2018-06-03] MEDS ORDERED: IPRATROPIUM BROM 0.5MG/2.5ML ONE (09:43)
[2018-06-03] MEDS ORDERED: NA CHLORIDE 0.9% 500 ML ONE (10:39)
[2018-06-03] MEDS ORDERED: HYDROCODONE/CHLORPHEN 5 ML/OSYR ONE (10:39)
[2018-06-03] MEDS ORDERED: METHYLPREDNISOLONE 40 MG INJ ONE (10:39)
--- NOTE | 2018-06-03 10:52 | RAD REPORT ---
EXAM DESCRIPTION: RAD - Chest Pa And Lat (2 Views) - 06/03/2018 10:42 am CLINICAL HISTORY: Cough;COPD Chest pain. COMPARISON: Chest Single View dated 04/01/2018 FINDINGS: The lungs are emphysematous but clear. The heart is upper limit of normal in size. No disp laced fractures. IMPRESSION: Mild COPD.
[2018-06-03 11:27] LABS: Absolute Lymphocytes (CBC) 3.6 K/uL (0.7-4.9); Basophils % 0.7 % (0-1.3); Eosinophils % 2.5 % (0-4.4); Hematocrit 41.6 % (36.0-45.0); Lymphocytes % 45.4 % (15.3-44.8); MCH 31.1 pg (27.0-35.0); MCV 91.9 fL (80-100); MPV 8.9 fL (7.6-11.3); Monocytes % 12.7 % (3.3-12.3); RBC Red Blood Cell Count 4.52 M/uL (3.86-4.86)
[2018-06-03 11:39] LABS: ALT/SGPT 19 U/L (12-78); AST/SGOT 14 U/L (15-37); Albumin 3.7 g/dL (3.4-5.0); Alkaline Phosphatase 86 U/L (45-117); BUN Blood Urea Nitrogen 7 mg/dL (7-18); Bicarbonate 24 mmol/L (21-32); Bilirubin Direct < 0.1 mg/dL (0-0.2); Bilirubin Total 0.3 mg/dL (0.2-1.0); Glucose Level 109 mg/dL (74-106); NT PRO-BNP 14 pg/mL (<125); Potassium 3.2 mmol/L (3.5-5.1); Protein, Total 7.7 g/dL (6.4-8.2); Sodium Level 141 mmol/L (136-145); Troponin (Emerg Dept Use Only) < 0.02 ng/mL (0.0-0.045)
[2018-06-03 12:05] LABS: Blood Morphology Comment NOT SEEN (NOT SEEN); Platelet Estimate ADEQ
[2018-06-03] MEDS ORDERED: LEVALBUTEROL 1.25 MG/3 ML NEB ONE (12:09)
[2018-06-03] MEDS ORDERED: POTASSIUM 25 MEQ EFFERV TAB ONE (12:09)
--- NOTE | 2018-06-03 12:34 | EKG ---
Test Date: 2018-06-03 Test Time: 09:25:33 [place]: JOSIAS MEASUREMENT RESULTS: Intervals: Rate: 81 ND: 184 QRSD: 98 QT: 396 QTc: 460 [place]: P: 80 ND: 184 QRS: 42 T: 56 INTERPRETIVE STATEMENTS: Normal sinus rhythm Normal ECG No previous ECG available for comparison Electronically Signed On 06-03-18 12:32:47 GARNETT MACHINE OPERATOR HELPER by Bala Solano
--- NOTE | 2018-06-03 12:40 | EDPHYS ---
Physician Documentation [facility] Name: Belem Weldon Age: 53 yrs Sex: Female : 1965 Arrival Date: 06/03/2018 Time: 09:03 Bed 20 Private MD: ED Physician Eugene Stein HPI: 06/03 10:25 This 53 yrs old Female presents to ER via Ambulatory with complaints of cp Breathing Difficulty, Chest Tightness. 10:25 The patient has shortness of breath with light activity. Onset: The symptoms/episode cp began/occurred yesterday. Duration: The symptoms are continuous, and are steadily getting worse. Associated signs and symptoms: Pertinent positives: non-productive cough, Pertinent negatives: chest pain, fever, hemoptysis, vomiting. 10:25 Severity of symptoms: in the emergency department the symptoms are unchanged despite cp home interventions. Historical: - Allergies: 09:10 Flexeril; hj 09:10 Ibuprofen; hj 09:10 Phenergan; hj 09:10 Toradol; hj 09:10 tramadol; hj - Home Meds: 09:10 None [Active]; hj - PMHx: 09:10 COPD; Hypothyroidism; hj - PSHx: 09:10 Unable to obtain; hj - Immunization history:: Adult Immunizations unknown. - Social history:: Smoking status: Patient uses tobacco products, Patient/guardian denies using alcohol. - Ebola Screening: : Patient negative for fever greater than or equal to 101.5 degrees Fahrenheit, and additional compatible Ebola Virus Disease symptoms Patient denies exposure to infectious person Patient denies travel to an Ebola-affected area in the 21 days before illness onset. ROS: 10:30 Constitutional: Negative for body aches, chills, fever, poor PO intake. cp 10:30 Eyes: Negative for injury, pain, redness, and discharge. cp 10:30 ENT: Positive for sore throat, Negative for drainage from ear(s), ear pain, sinus congestion, sinus pain, difficulty swallowing, difficulty handling secretions. 10:30 Cardiovascular: Negative for chest pain, edema, palpitations. 10:30 Respiratory: Positive for cough, shortness of breath. 10:30 Abdomen/GI: Negative for abdominal pain, vomiting, diarrhea, constipation. 10:30 Back: Negative for pain at rest, pain with movement, radiated pain. 10:30 : Negative for urinary symptoms. 10:30 Skin: Negative for cellulitis, rash. 10:30 Neuro: Negative for altered mental status, dizziness, headache, syncope, near syncope, weakness. 10:30 All other systems are negative. Exam: 10:42 Constitutional: The patient appears in no acute distress, alert, awake, cp non-diaphoretic, non-toxic, well developed, well nourished. 10:42 Head/Face: Normocephalic, atraumatic. cp 10:42 Eyes: Periorbital structures: appear normal, Conjunctiva: normal, no exudate, no injection, Sclera: no appreciated abnormality, Lids and lashes: appear normal, bilaterally. 10:42 ENT: External ear(s): are unremarkable, Ear canal(s): are normal, clear, TM's: bulging, is not appreciated, bilaterally, dullness, bilaterally, erythema, is not appreciated, bilaterally, Nose: is normal, Mouth: Lips: moist, Oral mucosa: pink and intact, moist, Posterior pharynx: is normal, airway is patent, no erythema, no exudate. 10:42 Neck: ROM/movement: is normal, is supple, without pain, no range of motions limitations, no meningismus, no nuchal rigidity, Lymph nodes: no appreciated lymphadenopathy. 10:42 Chest/axilla: Inspection: normal, Palpation: is normal, no crepitus, no tenderness. 10:42 Cardiovascular: Rate: normal, Rhythm: regular, Edema: is not appreciated, JVD: is not appreciated. 10:42 Respiratory: the patient does not display signs of respiratory distress, Respirations: labored breathing, is not present, shallow respirations, are not present, splinting, is not noted, tachypnea, is not appreciated, Breath sounds: bronchial sounds, that are moderate, are heard diffusely, stridor, is not appreciated, + upper airway congestion. wheezing: that is mild, is heard diffusely. 10:42 Abdomen/GI: Exam negative for discomfort, distension, guarding, Inspection: abdomen appears normal. 10:42 Back: pain, is absent, ROM is normal. 10:42 Skin: cellulitis, is not appreciated, no rash present. 10:42 Neuro: Orientation: to person, place \T\ time. Mentation: is normal, Cerebellar function: is grossly normal, Motor: moves all fours, strength is normal, Sensation: is normal. 10:48 ECG was reviewed by the Attending Physician. cp Vital Signs: 09:11 BP 140 / 77; Pulse 77; Resp 18; Temp 99.0(TE); Pulse Ox 98% on R/A; Weight 90.72 kg; hj Height 5 ft. 7 in. (170.18 cm); 10:00 BP 128 / 74; Pulse 72; Resp 16; Pulse Ox 97% on R/A; mh5 11:45 BP 132 / 51; Pulse 74; Resp 15; Pulse Ox 99% on R/A; aa5 12:45 BP 134 / 55; Pulse 85; Resp 18 S; Pulse Ox 96% on R/A; Pain 4/10; aa5 09:11 Body Mass Index 31.32 (90.72 kg, 170.18 cm) hj MDM: 10:13 Patient medically screened. 12:38 Data reviewed: vital signs, nurses notes, lab test result(s), EKG, radiologic studies, cp plain films. 12:38 Test interpretation: by ED physician or midlevel provider: ECG, plain radiologic cp studies. Counseling: I had a detailed discussion with the patient and/or guardian regarding: the historical points, exam findings, and any diagnostic results supporting the discharge/admit diagnosis, lab results, radiology results, the need for outpatient follow up, a family practitioner, to return to the emergency department if symptoms worsen or persist or if there are any questions or concerns that arise at home. Response to treatment: the patient's symptoms have markedly improved after treatment. 06/03 10:22 Order name: Influenza Screen (a \T\ B); Complete Time: 11:22 cp 06/03 11:29 Interpretation: Reviewed. cp 06/03 10:22 Order name: Strep; Complete Time: 11:00 cp 06/03 11:22 Interpretation: Reviewed. 06/03 10:22 Order name: Basic Metabolic Panel; Complete Time: 11:40 cp 06/03 11:40 Interpretation: Normal except: K 3.2; CL 108; GLUC 109; GFR 58. cp 06/03 10:22 Order name: CBC with Diff; Complete Time: 12:20 cp 06/03 11:29 Interpretation: Normal except: MICHELLE% 38.7; LYM% 45.4; MN% 12.7. cp 06/03 10:22 Order name: LFT's; Complete Time: 11:40 cp 06/03 11:40 Interpretation: Normal except: AST 14; GLOB 4.0; A/G 0.9. cp 06/03 10:22 Order name: Magnesium; Complete Time: 11:40 cp 06/03 09:25 Order name: Chest Pa And Lat (2 Views) XRAY; Complete Time: 11:00 aa5 06/03 11:00 Interpretation: Report reviewed. 06/03 10:22 Order name: NT PRO-BNP; Complete Time: 11:40 cp 06/03 10:22 Order name: Troponin (emerg Dept Use Only); Complete Time: 11:40 06/03 10:57 Order name: Throat Culture EDMS 06/03 12:05 Order name: Manual Differential; Complete Time: 12:20 EDMS 06/03 12:21 Interpretation: Normal except: LYM 47. cp 06/03 09:25 Order name: EKG - Nurse/Tech; Complete Time: 09:25 aa 06/03 10:22 Order name: EKG; Complete Time: 10:23 cp 06/03 10:22 Order name: Cardiac monitoring; Complete Time: 11:14 06/03 10:22 Order name: IV Saline Lock; Complete Time: 11:14 06/03 10:22 Order name: Labs collected and sent; Complete Time: 11:14 06/03 10:22 Order name: O2 Per Protocol; Complete Time: 10:41 06/03 10:22 Order name: O2 Sat Monitoring; Complete Time: 10:41 cp EC:48 Rate is 81 beats/min. Rhythm is regular. NM interval is normal. QRS interval is normal. cp QT interval is normal. T waves are Flattened in lead aVL. Interpreted by me. Reviewed by me. Administered Medications: 09:38 Drug: Albuterol - atroVENT (3:1) (2.5 mg - 0.5 mg) 3 ml Route: Nebulizer; aa5 10:00 Follow up: Response: No adverse reaction; Marked relief of symptoms; Wheezing diminishedaa5 10:30 Drug: Tussionex Pennkinetic ER 5 ml Route: PO; aa5 11:45 Follow up: Response: No adverse reaction aa5 11:05 Drug: NS 0.9% 500 ml Route: IV; Rate: bolus; Site: right hand; aa5 11:45 Follow up: IV Status: Completed infusion aa5 11:05 Drug: SOLU-Medrol 80 mg Route: IVP; Site: right hand; aa5 11:15 Follow up: Response: No adverse reaction aa5 12:08 Drug: Xopenex (3) 1.25 mg Route: Inhalation; iw 12:30 Follow up: Response: No adverse reaction; Marked relief of symptoms; Wheezing diminishedaa5 12:08 Drug: Potassium Effervescent Tablet 50 mEq Route: PO; iw 13:08 Follow up: Response: No adverse reaction aa5 Disposition: 13:20 Co-signature as Attending Physician, Eugene Stein MD I agree with the assessment and kdr plan of care. Disposition: 06/03/18 12:40 Discharged to Home. Impression: Chronic obstructive pulmonary disease with acute lower respiratory infection. - Condition is Stable. - Discharge Instructions: Chronic Obstructive Pulmonary Disease, Upper Respiratory Infection, Adult. - Prescriptions for Guaifenesin AC 10- 100 mg/5 mL Oral Liquid - take 10 milliliters by ORAL route every 6 hours As needed; 180 milliliter. ipratropium- albuterol 0.5 mg-3 mg(2.5 mg base)/3 mL Inhalation solution for nebulization - inhale 3 milliliter by NEBULIZATION route 4 times per day As needed; 1 box. Prednisone 20 mg Oral Tablet - take 2 tablet by ORAL route once daily for 5 days; 10 tablet. Albuterol Sulfate 90 mcg/actuation - inhale 1-2 puff by INHALATION route every 4-6 hours; 1 Inhaler. - Medication Reconciliation Form, Thank You Letter, Antibiotic Education, Prescription Opioid Use form. - Follow up: Private Physician; When: 1 - 2 days; Reason: Recheck today's complaints. - Problem is new. - Symptoms have improved. Signatures: Dispatcher [employer] EDMS Eugene Stein MD MD [facility] Brea Hairston RN RN iw Calderon, Audri, RN RN aa5 Kwasi Lester RN RN hj Page, Corey, PA PA cp Corrections: (The following items were deleted from the chart) 13:15 12:40 06/03/2018 12:40 Discharged to Home. Impression: Chronic obstructive pulmonary aa5 disease with acute lower respiratory infection. Condition is Stable. Forms are Medication Reconciliation Form, Thank You Letter, Antibiotic Education, Prescription Opioid Use. Follow up: Private Physician; When: 1 - 2 days; Reason: Recheck today's complaints. Problem is new. Symptoms have improved. cp
--- NOTE | 2018-06-03 12:40 | ER ---
Nurse's Notes [facility] Name: Belem Weldon Age: 53 yrs Sex: Female : 1965 Arrival Date: 06/03/2018 Time: 09:03 Bed 20 Private MD: Diagnosis: Chronic obstructive pulmonary disease with acute lower respiratory infection Presentation: 06/03 09:08 Presenting complaint: Patient states: yesterday i started having cough, sneezing, hj congestion and now its getting worse, i feel i have wheezing; reports fever;. Transition of care: patient was not received from another setting of care. Onset of symptoms was June 03, 2018. Risk Assessment: Do you want to hurt yourself or someone else? Patient reports no desire to harm self or others. Initial Sepsis Screen: Does the patient meet any 2 criteria? No. Patient's initial sepsis screen is negative. Does the patient have a suspected source of infection? No. Patient's initial sepsis screen is negative. Care prior to arrival: None. 09:08 Method Of Arrival: Ambulatory 09:08 Acuity: NAT 3 hj Triage Assessment: 09:10 General: Appears in no apparent distress. uncomfortable, Behavior is calm, cooperative, hj appropriate for age. Pain: Complains of pain in chest. Respiratory: Reports shortness of breath Onset: The symptoms/episode began/occurred yesterday, the patient has mild shortness of breath. Historical: - Allergies: 09:10 Flexeril; hj 09:10 Ibuprofen; hj 09:10 Phenergan; hj 09:10 Toradol; hj 09:10 tramadol; hj - Home Meds: 09:10 None [Active]; hj - PMHx: 09:10 COPD; Hypothyroidism; hj - PSHx: 09:10 Unable to obtain; hj - Immunization history:: Adult Immunizations unknown. - Social history:: Smoking status: Patient uses tobacco products, Patient/guardian denies using alcohol. - Ebola Screening: : Patient negative for fever greater than or equal to 101.5 degrees Fahrenheit, and additional compatible Ebola Virus Disease symptoms Patient denies exposure to infectious person Patient denies travel to an Ebola-affected area in the 21 days before illness onset. Screenin:20 Abuse screen: Denies threats or abuse. Nutritional screening: No deficits noted. aa5 Tuberculosis screening: No symptoms or risk factors identified. Fall Risk None identified. Assessment: 09:11 Cardiovascular: Rhythm is. Respiratory: Airway is patent Respiratory effort is even, hj unlabored, Respiratory pattern is regular, symmetrical, Breath sounds with wheezes. 09:20 General: Appears uncomfortable, Behavior is calm, cooperative. Pain: Complains of pain aa5 in chest and whole body Pain currently is 8 out of 10 on a pain scale. Quality of pain is described as pt described chest pain as tightness/pressure and body pain as aching Pain began 2-3 days ago. Is continuous. Neuro: Level of Consciousness is awake, alert, obeys commands, Oriented to person, place, time, situation. Cardiovascular: Heart tones S1 S2 present Rhythm is regular. Respiratory: Reports shortness of breath cough that is non-productive, Airway is patent Respiratory effort is even, unlabored, Respiratory pattern is regular, symmetrical, Breath sounds with wheezes bilaterally. GI: Abdomen is round non-distended, Bowel sounds present X 4 quads. Abd is soft and non tender X 4 quads. : No signs and/or symptoms were reported regarding the genitourinary system. EENT: Reports nasal congestion nasal discharge that is watery. Derm: Skin is pink, warm \T\ dry. Musculoskeletal: Range of motion: intact in all extremities. 10:00 Reassessment: Patient is alert, oriented x 3, equal unlabored respirations, skin aa5 warm/dry/pink. Patient states feeling better. Respiratory: wheezing diminished bilaterally. 10:30 Reassessment: Strep and flu collected and sent to lab. Pt now to x-ray via wheelchair. aa5 I will attempt IV when pt returns. . 11:00 Reassessment: Patient is alert, oriented x 3, equal unlabored respirations, skin aa5 warm/dry/pink. Pt back from X-ray. 11:45 Reassessment: Patient is alert, oriented x 3, equal unlabored respirations, skin aa5 warm/dry/pink. 13:08 Reassessment: Patient is alert, oriented x 3, equal unlabored respirations, skin aa5 warm/dry/pink. Patient states feeling better. Vital Signs: 09:11 BP 140 / 77; Pulse 77; Resp 18; Temp 99.0(TE); Pulse Ox 98% on R/A; Weight 90.72 kg; hj Height 5 ft. 7 in. (170.18 cm); 10:00 BP 128 / 74; Pulse 72; Resp 16; Pulse Ox 97% on R/A; mh5 11:45 BP 132 / 51; Pulse 74; Resp 15; Pulse Ox 99% on R/A; aa5 12:45 BP 134 / 55; Pulse 85; Resp 18 S; Pulse Ox 96% on R/A; Pain 4/10; aa5 09:11 Body Mass Index 31.32 (90.72 kg, 170.18 cm) ED Course: 09:03 Patient arrived in ED. rg4 09:09 Triage completed. hj 09:11 Arm band placed on right wrist. hj 09:20 Patient has correct armband on for positive identification. Bed in low position. Call aa5 light in reach. Side rails up X 1. 09:24 Julienne Telles, RN is Primary Nurse. aa5 09:28 EKG done, by mechanical laboratory technician. reviewed by Eugene Stein MD. at1 09:47 Radiology exam delayed due to patient receiving breathing treatment at this time. mh1 10:[address] PA is PHCP. cp 10:13 Eugene Stein MD is Attending Physician. cp 10:46 Chest Pa And Lat (2 Views) XRAY In Process Unspecified. EDMS 11:05 Inserted saline lock: 22 gauge in right hand, using aseptic technique. aa5 11:05 Missed attempt(s): 22 gauge in right antecubital area. Bleeding controlled, band aid aa5 applied, catheter tip intact. 11:33 Throat Culture Sent. aa5 13:08 IV discontinued, intact, bleeding controlled, No redness/swelling at site. Pressure aa5 dressing applied. 13:08 No provider procedures requiring assistance completed. aa5 Administered Medications: 09:38 Drug: Albuterol - atroVENT (3:1) (2.5 mg - 0.5 mg) 3 ml Route: Nebulizer; aa5 10:00 Follow up: Response: No adverse reaction; Marked relief of symptoms; Wheezing diminishedaa5 10:30 Drug: Tussionex Pennkinetic ER 5 ml Route: PO; aa5 11:45 Follow up: Response: No adverse reaction aa5 11:05 Drug: NS 0.9% 500 ml Route: IV; Rate: bolus; Site: right hand; aa5 11:45 Follow up: IV Status: Completed infusion aa5 11:05 Drug: SOLU-Medrol 80 mg Route: IVP; Site: right hand; aa5 11:15 Follow up: Response: No adverse reaction aa5 12:08 Drug: Xopenex (3) 1.25 mg Route: Inhalation; iw 12:30 Follow up: Response: No adverse reaction; Marked relief of symptoms; Wheezing diminishedaa5 12:08 Drug: Potassium Effervescent Tablet 50 mEq Route: PO; iw 13:08 Follow up: Response: No adverse reaction aa5 Outcome: 12:40 Discharge ordered by MD. cp 13:08 Discharged to home ambulatory, with family. aa5 13:08 Condition: improved 13:08 Discharge instructions given to patient, Instructed on discharge instructions, follow up and referral plans. medication usage, Demonstrated understanding of instructions, follow-up care, medications, Prescriptions given X 4. 13:15 Patient left the ED. aa5 Signatures: Dispatcher [employer] EDMS Angela Judd mh1 Brea Hairston RN RN Julienne Telles RN RN aa5 Emeli Kidd, farm management teacher EKG Tat1 Kwasi Lester RN RN hj Page, Corey, PA PA cp Garcia, Rubi 4 Charito Licea 5 Corrections: (The following items were deleted from the chart) 12:23 10:45 BP 132 / 51; Pulse 74bpm; Resp 15bpm; Pulse Ox 100% Nebulizer Mask; mh5 aa5
== END 2018-06-03 13:15 | disposition home or self-care (01) ==
LOC: ER 09:00
DX: J44.0 Chronic obstructive pulmonary disease with (acute) lower respiratory infection (principal); Z72.0 Tobacco use; Z88.5 Allergy status to narcotic agent; Z88.6 Allergy status to analgesic agent; Z88.8 Allergy status to other drugs, medicaments and biological substances
CPT/HCPCS: 36415; 71046; 80048; 80076; 83735; 83880; 84484; 85025; 87070; 87081; 87804; 93005; 94640; 96361; 96374; 99284; J2920